=== PATIENT | female | born 1990 | race Caucasian/White ===

== ENCOUNTER → 2016-11-20 | Outpatient (CLI) | payer SELFPAY ==
[2016-11-20 10:15] LABS: BASO % 0.3 % (0.0-1.0); EOS # 0.1 K/mm3 (0.0-0.50); EOS % 1.6 % (0.0-3.0); LARGE UNSTAINED CELL # 0.2 K/mm3 (0.0-0.4); LARGE UNSTAINED CELL % 2.6 % (0.0-4.0); LYMPH # 1.7 K/mm3 (1.5-6.5); LYMPH % 27.5 % (24.0-44.0); MEAN CORPUSCULAR HEMOGLOBIN 27.9 pg (27.0-33.0); MEAN CORPUSCULAR HGB CONC 32.3 g/dl (32.0-36.5); MEAN CORPUSCULAR VOLUME 86.4 fl (80.0-96.0); MONO # 0.4 K/mm3 (0.0-0.8); MONO % 5.6 % (0.0-5.0); NEUTROPHILS # 3.9 K/mm3 (1.8-7.7); NEUTROPHILS % 62.4 % (36.0-66.0); PLATELET COUNT, AUTOMATED 324 k/mm3 (150-450); RED CELL DISTRIBUTION WIDTH 13.9 % (11.5-14.5); WHITE BLOOD COUNT 6.3 K/mm3 (4.0-10.0)
[2016-11-20 10:45] LABS: VITAMIN B12 LEVEL 277 PG/ML (247-911)
[2016-11-20 10:47] LABS: ALBUMIN 3.5 GM/DL (3.2-5.2); ALBUMIN/GLOBULIN RATIO 0.88 (1.00-1.93); ALKALINE PHOSPHATASE 62 U/L (45-117); ALT/SGPT 20 U/L (12-78); ANION GAP 11 MEQ/L (8-16); AST/SGOT 14 U/L (15-37); BILIRUBIN,TOTAL 0.3 MG/DL (0.2-1.0); BLOOD UREA NITROGEN 14 MG/DL (7-18); CALCIUM LEVEL 8.7 MG/DL (8.5-10.1); CARBON DIOXIDE LEVEL 25 MEQ/L (21-32); CHLORIDE LEVEL 106 MEQ/L (98-107); CREATININE FOR GFR 0.64 MG/DL (0.55-1.02); FREE T4 0.85 NG/DL (0.76-1.46); GLOMERULAR FILTRATION RATE > 60.0 (>60); GLUCOSE, FASTING 86 MG/DL (70-105); POTASSIUM SERUM 4.7 MEQ/L (3.5-5.1); SODIUM LEVEL 142 MEQ/L (136-145); TOTAL PROTEIN 7.5 GM/DL (6.4-8.2)
== END ==
LOC: M LAB 09:22
PROVIDERS: ATTEND Nurse Practitioner Family
DX: D64.9 Anemia, unspecified (principal); R53.83 Other fatigue

== ENCOUNTER → 2017-03-16 | Outpatient (REF) | payer MEDICAID | LOC: M SFHCLERA 12:23 | PROVIDERS: ATTEND Nurse Practitioner Family | DX: J06.9 Acute upper respiratory infection, unspecified (principal) ==

== ENCOUNTER 2017-04-27 17:25 | Inpatient (IN) | payer MEDICAID, OTHER ==
[~2017-04-27] VITALS: Ht 175.3 cm; Wt 122.9 kg
[2017-04-27] MEDS ORDERED: [UNRECOGNIZED DRUG - CODE] PO (17:49)
[2017-04-27] MEDS ORDERED: FERR325T3 PO (17:49)
[2017-04-27] MEDS ORDERED: IBUP800T23 PO (17:49)
[2017-04-27] MEDS ORDERED: FLUO10TA30 PO (17:49)
[2017-04-27] MEDS ORDERED: COLA100C3 PO (17:49)
[2017-04-27] MEDS ORDERED: SUBO2MIS SL (17:49)
[2017-04-27] MEDS ORDERED: BUPR150T3 PO (17:49)
[2017-04-27] MEDS ORDERED: VITA500T53 PO (17:49)
[2017-04-27 18:53] LABS: CONTROL LINE UCG INT CTR LINE PRESENT; MEAN CORPUSCULAR HEMOGLOBIN 29.7 pg (27.0-33.0); MEAN CORPUSCULAR VOLUME 87.4 fl (80.0-96.0); RED CELL DISTRIBUTION WIDTH 12.5 % (11.5-14.5); WHITE BLOOD COUNT 6.6 K/mm3 (4.0-10.0)
[2017-04-27 19:03] LABS: METHADONE URINE NEGATIVE (NEGATIVE)
[2017-04-27 19:14] LABS: ALBUMIN 3.5 GM/DL (3.2-5.2); ALKALINE PHOSPHATASE 57 U/L (45-117); ALT/SGPT 15 U/L (12-78); ANION GAP 5 MEQ/L (8-16); AST/SGOT 13 U/L (15-37); BILIRUBIN,DIRECT < 0.1 MG/DL (0.0-0.2); BILIRUBIN,TOTAL 0.2 MG/DL (0.2-1.0); BLOOD UREA NITROGEN 14 MG/DL (7-18); CALCIUM LEVEL 9.2 MG/DL (8.5-10.1); CARBON DIOXIDE LEVEL 29 MEQ/L (21-32); CHLORIDE LEVEL 102 MEQ/L (98-107); CREATININE FOR GFR 0.65 MG/DL (0.55-1.02); GLOMERULAR FILTRATION RATE > 60.0 (>60); GLUCOSE, FASTING 82 MG/DL (70-105); POTASSIUM SERUM 4.4 MEQ/L (3.5-5.1); SODIUM LEVEL 136 MEQ/L (136-145)
[2017-04-27] MEDS ORDERED: PATIENT COMMENT (20:48)
[2017-04-27 22:00] VITALS: BP 144/85
[2017-04-27] MEDS ORDERED: MAALOX 30 ML SUSP *UDC PO PRN (23:00)
[2017-04-27] MEDS ORDERED: ACETAMINOPHEN TAB 650MG DOSE (2X325MG) PO PRN (23:00)
[2017-04-27] MEDS ORDERED: MOM 30ML SUSPENSION UDC PO PRN (23:00)
[2017-04-28 06:36] VITALS: BP 129/60
[2017-04-28] MEDS: FERROUS SULFATE 325MG TAB PO SCH (08:05)
[2017-04-28] MEDS: DOCUSATE SODIUM 100 MG CAP PO SCH ×2 (08:05→21:50)
[2017-04-28] MEDS: buPROPion **XL** TABLET 150MG (WELLBUTRIN XL) PO SCH (08:05)
[2017-04-28] MEDS: NICOTINE 21MG/24HR 1 EA TRANSDERMAL TD SCH (08:05)
[2017-04-28] MEDS: CYANOCOBALAMIN 500 MCG TAB PO SCH (08:05)
[2017-04-28] MEDS ORDERED: BUPRENORPHINE/NALOXONE 2-0.5MG SUBLINGUAL TABLET(SUBOXONE) SL SCH (09:00)
[2017-04-28] MEDS ORDERED: FLUoxetine 10 MG CAP PO SCH (09:00)
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
[2017-04-28] MEDS ORDERED: BUPRENORPHINE/NALOXONE 2-0.5MG SUBLINGUAL TABLET(SUBOXONE) SL ONE (10:30)
--- NOTE | 2017-04-28 10:40 | HPEPDOC ---
Medical History and Physical Date of Admission Apr 27, 2017 at 20:08 History and Physical PCP: Eugenie Rodriguez NP ATTENDING: Dr. Curly Waldron HPI: 26 yo F admitted to [facility] for unspecified depressive disorder, being medically examined today. No acute medical complaints today. Denies any fevers, chills, weakness, fatigue, MUNOZ, CP, SOB, cough, palpitations, abdominal pain, N/V /D or changes in bowel or bladder habits. PMHx: Depression Anxiety Substance use History of anemia PSHX: 2 SOCHX: Resides in: [facility] women's home Marital Status: Single Kids: 2 Employment: Unemployed Tobacco use: Denies ETOH: Denies Illicit Drugs: Last used 6 months ago. History of heroin and methamphetamine. IV Drug Use: Heroin and methamphetamine Tattoos done unprofessionally: 1 FAMHX: Mother: Alive, depression Father: Alive, well Siblings: One brother Alive, substance use Children: Alive, well Unexpected deaths due to medical reasons: None. ROS: As noted in HPI, otherwise 11pt ROS of systems reviewed and remarkable only for LMP 04/27/17 PE: GEN: 26 yo F, appears stated age. Well-nourished, well developed. No acute distress. Alert and oriented x 3. Pleasant, interactive. HEENT: Normocephalic, atraumatic. Pupils are equal, round, and reactive to light. Extraocular movements are intact. No nystagmus appreciated. Sclera are nonicteric. Conjunctiva without injection. Nose midline. Nasal turbinates without bogginess. EACs both patent BL. TMs both visualized and montez with good cone of light, no bulging or erythema. No facial asymmetry. Moist mucous membranes. Dentition fair. Aphthous ulcers are noted buccal mucosal lower lip. Pharynx pink and moist, no cobblestoning. Neck supple, trachea midline. No lymphadenopathy or thyromegaly appreciated. CHEST: Regular rate and rhythm, +S1, +S2 LUNGS: Clear to auscultation bilaterally. No wheezes, rales, or rhonchi. Breathing appears symmetric and easy. Patient is speaking in full sentences. No accessory muscle use. ABD: Round, soft, non-tender, non-distended. +Bowel sounds throughout. No rebound or guarding. No costovertebral angle tenderness. EXT: Pulses 2+ bilaterally dorsalis pedis and radial. No lower extremity edema appreciated. SKIN: [place], dry, warm. Capillary refill <2sec. No rashes. NEURO: Alert and oriented x 3. Cranial nerves III-XII are intact. No focal deficits appreciated. EKG: pending A&P: 26 yo F admitted to [facility] for unspecified depressive disorder 1. Psych. Plan per Psychiatry. Obtain baseline EKG to assure the safety of psychiatric medications as they can prolong the QT interval. 2. History of anemia. Continue vitamin B12 supplement and ferrous sulfate supplement. Hemoglobin noted to be 12.2. 3. History of IVDU and tattoo done unprofessionally. Patient declines screening for HIV and hepatitis at this time stating she was screened 10/30 with negative results. 4. Follow up with PCP on discharge. 5. History of Substance use. Per psychiatry. Patient remains on Suboxone, obtains as outpatient as per [facility]. 6. Continue with OCP. 7. Aphthous ulcers. Apply Anbesol 3 times a day as needed. Chlorhexidine mouthwash 3 times a day. 8. Paulette DEL REAL present throughout exam. Vital Signs Vital Signs Date Time Temp Pulse Resp B/P (MAP) Pulse Ox O2 Delivery O2 Flow Rate FiO2 04/28/17 06:36 97.6 75 18 129/60 (83) Room Air 04/27/17 21:09 96 Laboratory Data Labs 24H Laboratory Tests 2 04/27/17 18:31: Urine Test NEGATIVE, Anion Gap 5L, Glomerular Filtration Rate > 60.0, Calcium Level 9.2, Aspartate Amino Transf (AST/SGOT) 13L, Alanine Aminotransferase (ALT/SGPT) 15, Alkaline Phosphatase 57, Total Bilirubin 0.2, Direct Bilirubin < 0.1, Total Protein 7.0, Albumin 3.5, Albumin/Globulin Ratio 1.00, Thyroid Stimulating Hormone (TSH) 2.420, Salicylates Level < 1.7L, Urine Amphetamines Screen NEGATIVE, Urine Benzodiazepines Screen NEGATIVE, Urine Opiates Screen NEGATIVE, Urine Methadone Screen NEGATIVE, Acetaminophen Level < 2.0L, Urine Barbiturates Screen NEGATIVE, Urine Phencyclidine Screen NEGATIVE, Urine Cocaine Metabolite Screen NEGATIVE, Urine Cannabinoids Screen NEGATIVE, Ethyl Alcohol Level 0.003 CBC/BMP Laboratory Tests 04/27/17 18:31 Red Blood Count 4.09, Mean Corpuscular Volume 87.4, Mean Corpuscular Hemoglobin 29.7, Mean Corpuscular Hemoglobin Concent 34.0, Red Cell Distribution Width 12.5 Home Medications Scheduled (Fluoxetine HCl) 10 Mg Tab, 10 MG PO DAILY (Marlissa 0.15-30 mg-Mcg) 1 Tab Tab, 1 TAB PO DAILY Buprenorphine/Naloxone (Suboxone 2-0.5 mg) 1 Mis Mis, 1 MIS SL DAILY Bupropion Hcl (Bupropion HCl Xl) 150 Mg Tab, 150 MG PO DAILY Cyanocobalamin (Vitamin B12) 500 Mcg Tab, 500 MCG PO DAILY Docusate Sodium (Colace) 100 Mg Cap, 100 MG PO BID Ferrous Sulfate (Ferrous Sulfate) 325 Mg Tab, 325 MG PO DAILY Scheduled PRN Ibuprofen (Ibuprofen) 800 Mg Tab, 800 MG PO TID PRN for PAIN Miscellaneous Medications [Patient Comment] UNABLE TO VERIFY PATIENT MEDICATIONS WITH PHARMACY, MED LIST BASED ON PATIENT STATEMENT, WILL CALL 04/28/17 AM. Allergies Coded Allergies: No Known Allergies (Unverified , 04/27/17) Jaja Avalos Apr 28, 2017 10:40
[2017-04-28] MEDS ORDERED: FLUO1TAB3 PO (11:16)
[2017-04-28 12:35] VITALS: BP 143/79
[2017-04-28] MEDS: ANBESOL GEL 10% MT SCH ×3 (14:27→21:51)
[2017-04-28] MEDS: CHLORHEXIDINE GLUCONATE 0.12 % 15ML UDC (PERIDEX ORAL RINSE) SSP SCH ×3 (14:27→21:51)
[2017-04-28 18:27] VITALS: BP 136/72
[2017-04-28 21:00] VITALS: BP 128/76
--- NOTE | 2017-04-28 22:36 | ECGEPIP ---
Stationary ECG Study [facility] Test Date: 2017-04-28 Pat Name: TAMMY MAHAJAN Department: Room: [place] [address] Gender: F [place]: : 1990 Requested By: Jaja Avalos Order Number: [id number] Reading MD: Tunde Mahmood Measurements Intervals [place] Rate: 60 P: 50 UT: 153 QRS: 59 QRSD: 109 T: 51 QT: 420 QTc: 422 Interpretive Statements Normal sinus rhythm Normal EKG Comparison tracing not available Electronically Signed On 04-28-2017 22:36:36 EDT by Tunde Mahmood
[2017-04-28] MEDS: traZODone 50 MG TAB PO PRN (23:03)
[2017-04-29 06:00] VITALS: BP 113/57
[2017-04-29] MEDS: ANBESOL GEL 10% MT SCH ×3 (08:11→21:35)
[2017-04-29] MEDS: CHLORHEXIDINE GLUCONATE 0.12 % 15ML UDC (PERIDEX ORAL RINSE) SSP SCH ×3 (08:11→21:34)
[2017-04-29] MEDS: buPROPion **XL** TABLET 150MG (WELLBUTRIN XL) PO SCH (08:12)
[2017-04-29] MEDS: NICOTINE 21MG/24HR 1 EA TRANSDERMAL TD SCH (08:12)
[2017-04-29] MEDS: DOCUSATE SODIUM 100 MG CAP PO SCH ×2 (08:12→21:34)
[2017-04-29] MEDS: FERROUS SULFATE 325MG TAB PO SCH (08:12)
[2017-04-29] MEDS: CYANOCOBALAMIN 500 MCG TAB PO SCH (08:12)
[2017-04-29] MEDS: FLUoxetine 10 MG CAP PO SCH (08:12)
[2017-04-29] MEDS ORDERED: ENTER DRUG NAME HERE (PATIENT'S OWN MED) PO SCH (09:00)
[2017-04-29] MEDS: BUPRENORPHINE/NALOXONE 2-0.5MG SUBLINGUAL TABLET(SUBOXONE) SL SCH (11:45)
--- NOTE | 2017-04-29 15:55 | MHIPNPDOC ---
[facility] Progress Note Progress Note DATE OF SERVICE: 04/29/17 HISTORY: Patient is a 26-year-old female with 1 prior psychiatric admission post OD heroin, with multiple admissions for rehabilitation for substance abuse. Patient indicates she has been experiencing increased stress related to recent request to be "promoted" in substance abuse residential program and was denied, adds she was experiencing thoughts of wanting to kill herself with plan to hang self or drink bleach. Patient has history of one prior suicide attempt. Heating Unit Installer met with patient today to assess treatment progress on inpatient unit. Patient was irritable at times of interaction due to pharmacy not receiving Suboxone, however, was able to maintain composure and engage with poem writer for assessment purposes. Patient reported current anxiety level of 5/10, depression 2/10, denied suicidal and homicidal ideation, denied auditory or visual hallucinations, denied urge to engage in self-injurious behavior. Patient reiterated today that her Prozac dose was increased approximately 3-4 weeks ago , and Wellbutrin XL was added approximately one week ago. Patient reports some improvement to symptoms of anxiety and depression today, indicates improvement may be related to medications or being in hospital environment. Patient is aware she has hydroxyzine available to her for intermittent symptoms of anxiety if needed. Patient reports reduced symptoms of irritability, anger, mood lability, endorses symptoms of craving or withdrawal at time of interaction due to not having had a.m. dose of Suboxone. Patient indicates appetite remains elevated, states she is sleeping well, reports ongoing challenges with concentration and focus. Patient denies symptoms of physical pain and presents with no signs of acute distress at time of interaction. Patient states she is being prescribed the following medications by her outpatient provider: Prozac 30 mg po q day - states dose was increased approximately one month ago Wellbutrin XL 150 mg po q am - states medication was added one week ago to address weight concerns and challenges with concentration and focus. VITALS: See below NEW TEST RESULTS: No new results PAST MEDICAL/SURGICAL HISTORY: Patient reports history of anemia and 2, denies history of other chronic medical problems, further denies history of seizure or head injury. Patient is currently experiencing aphthous ulcers which are being treated by PA Labs on admission indicated low HCT, anion gap, and AST. UDS negative HCG negative 04/28/17 EKG Normal sinus rhythm Normal EKG Comparison tracing not available CURRENT MEDICATIONS: See below MENTAL STATUS EXAMINATION: General appearance: Patient is a 26 -year old female, who is mildly irritable but makes effort to be pleasant, is cooperative, is engageable, makes adequate eye contact, is disheveled, dressed in hospital clothing, ambulates with steady gait, appears stated age. Speech: Of normal rate, rhythm, volume, spontaneous, coherent. Thought processes: Linear, logical, goal-directed. Thought content: Logical, rational, no tangentiality or paranoia noted, no perseveration. Abstract reasoning and computation: Appear intact. Description of associations: Intact. Description of abnormal or psychotic thoughts: Patient denies suicidal or homicidal ideation, denies auditory or visual hallucinations, does not appear to be responding to internal stimuli, does not endorse bizarre paranoid ideation , and denies preoccupation with violence or obsession. Judgment: Limited. Insight: Limited. Orientation: A and O 3. Recent and remote memory: Appear intact. Attention span and concentration: Appear adequate. Fund of knowledge: Appears adequate. Mood: "I'm ok, just frustrated." Affect: Blunted, congruent with mood. DIAGNOSES: Unspecified mood disorder, polysubstance use disorder. Rule out MDD, rule out bipolar, rule out substance-induced mood disorder, rule out ICD, rule out attention and concentration disorder, rule out kleptomania, rule out PTSD ASSESSMENT: Patient continues to adjust to unit, remains quiet and generally isolated to self, but is visible on unit and is participating in unit activities , is cooperative with staff and has presented with no behavior management challenges. Adjustments were recently made to patient's psychotropic medications by outpatient provider and patient indicates medications were previously effective and denies medication side effects. Patient reiterates today she will not take any medication which may cause weight gain, denies need for medication changes, dosing adjustment at time of interaction.. Patient is also on Suboxone maintenance and became noticeably irritable when medication was not brought over from the pharmacy this morning, however, was able to maintain composure until medication arrived on unit. Patient is aware she has PRN anxiolytic and sleep aid available to her if needed. Patient is requesting to continue current medication regimen at this time and denies medication side effects. Patient denies current suicidal or homicidal ideation and verbalizes awareness of how to access supportive services on the unit if needed. Will Lorena to monitor patient's response to medications and will evaluate need for medication/dosing adjustment, will also monitor for medication side effects. Will evaluate patient's safety, resolution of suicidal ideation, and discharge readiness. Patient states when prepared for discharge she knows she will return to [facility] residential program, is agreeable to resume outpatient psychotherapy and medication management through [facility] post discharge. MANAGEMENT PLAN: Continue Prozac 30 mg po q am, Wellbutrin XL 150 mg po q am, Suboxone 6 mg sL q day. Maintain safety precautions Patient to attend groups and participate in unit programming to develop coping strategies Engage patient in discharge planning process and arrange meeting with support system to ensure safe discharge planning when appropriate Patient to follow up with PCM upon discharge TIME SPENT: 35 minutes Vital Signs Vital Signs Date Time Temp Pulse Resp B/P (MAP) Pulse Ox O2 Delivery O2 Flow Rate FiO2 04/29/17 06:00 98.1 64 18 113/57 (75) 04/28/17 06:36 Room Air 04/27/17 21:09 96 Current Medications Current Medications Acetaminophen (Tylenol Tab) 650 mg Q6HP PRN PO HEADACHE or DISCOMFORT; Start at 23:00; Stop 05/27/17 at 22:59 Al Hydrox/Mg Hydrox/Simethicone (Mylanta) 30 ml Q4HP PRN PO HEARTBURN/ INDIGESTION; Start 04/27/17 at 23:00; Stop 05/27/17 at 22:59 Benzocaine (Anbesol Gel) 1 dose TID MT Last administered on 04/29/17 15:45; Start 04/28/17 at 09:00; Stop 05/28/17 at 08:59 Buprenorphine/ Naloxone (Suboxone 2/ 0.5mg) 1 tab DAILY SL Last administered on 04/28/17 08:05; Start 04/28/17 at 09:00; Stop 04/28/17 at 10:42; Status DC Buprenorphine/ Naloxone (Suboxone 2/ 0.5mg) 3 tab DAILY SL Last administered on 04/29/17 11:45; Start 04/29/17 at 09:00; Stop 05/06/17 at 08:59 Bupropion HCl (Wellbutrin Xl) 150 mg DAILY PO Last administered on 04/29/17 08 :12; Start 04/28/17 at 09:00; Stop 05/28/17 at 08:59 Chlorhexidine Gluconate (Peridex Oral Rinse) 15 ml TID SSP Last administered on 04/29/17 15:45; Start 04/28/17 at 09:00; Stop 05/28/17 at 08:59 Cyanocobalamin (Vitamin B12) 500 mcg DAILY PO Last administered on 04/29/17 08 :12; Start 04/28/17 at 09:00; Stop 05/28/17 at 08:59 Docusate Sodium (Colace) 100 mg BID PO Last administered on 04/29/17 08:12; Start 04/28/17 at 09:00; Stop 05/28/17 at 08:59 Ferrous Sulfate (Ferrous Sulfate) 325 mg DAILY PO Last administered on 08:12; Start 04/28/17 at 09:00; Stop 05/28/17 at 08:59 Fluoxetine HCl (PROzac) 10 mg DAILY PO Last administered on 04/28/17 08:05; Start 04/28/17 at 09:00; Stop 04/28/17 at 22:17; Status DC Fluoxetine HCl (PROzac) 30 mg DAILY PO Last administered on 04/29/17 08:12; Start 04/29/17 at 09:00; Stop 05/29/17 at 08:59 Home Med (Med Rec Complete!) ASDIRECTED XX ; Start 04/27/17 at 21:00; Stop at 21:00; Status DC Hydroxyzine HCl (Atarax) 50 mg Q6HP PRN PO ANXIETY; Start 04/28/17 at 22:15; Stop 05/28/17 at 22:14 Magnesium Hydroxide (Milk Of Magnesia) 30 ml DAILYPRN PRN PO CONSTIPATION; Start 04/27/17 at 23:00; Stop 05/27/17 at 22:59 Miscellaneous (Unresolved Patient Own Med Order) SEE LABEL COMMENTS UNRESOLVED XX ; Start 04/28/17 at 00:01; Stop 04/29/17 at 14:11; Status DC Nicotine (Nicoderm Cq 21mg) 1 patch DAILY TD Last administered on 04/29/17 08: 12; Start 04/28/17 at 09:00; Stop 05/28/17 at 08:59 Patient Own Medication (Patient'S Own Med) 1 ea DAILY PO ; Start 04/29/17 at 09: 00; Stop 04/29/17 at 14:11; Status DC Trazodone HCl (Desyrel) 50 mg QHSP PRN PO INSOMNIA Last administered on t 23:03; Start 04/27/17 at 23:00; Stop 05/27/17 at 22:59 Allergies Coded Allergies: No Known Allergies (Unverified , 04/27/17) Michelle Kruse Apr 29, 2017 15:55
[2017-04-29 18:00] VITALS: BP 115/58
[2017-04-29] MEDS: hydrOXYzine 50 MG TAB PO PRN (21:34)
[2017-04-29] MEDS: traZODone 50 MG TAB PO PRN (23:03)
[2017-04-30 06:00] VITALS: BP 94/50
[2017-04-30] MEDS: ANBESOL GEL 10% MT SCH ×3 (09:00→21:00)
[2017-04-30] MEDS: DOCUSATE SODIUM 100 MG CAP PO SCH ×2 (09:47→21:10)
[2017-04-30] MEDS: buPROPion **XL** TABLET 150MG (WELLBUTRIN XL) PO SCH (09:47)
[2017-04-30] MEDS: BUPRENORPHINE/NALOXONE 2-0.5MG SUBLINGUAL TABLET(SUBOXONE) SL SCH (09:47)
[2017-04-30] MEDS: NICOTINE 21MG/24HR 1 EA TRANSDERMAL TD SCH (09:47)
[2017-04-30] MEDS: FERROUS SULFATE 325MG TAB PO SCH (09:47)
[2017-04-30] MEDS: CYANOCOBALAMIN 500 MCG TAB PO SCH (09:48)
[2017-04-30] MEDS: FLUoxetine 10 MG CAP PO SCH (09:48)
[2017-04-30] MEDS: CHLORHEXIDINE GLUCONATE 0.12 % 15ML UDC (PERIDEX ORAL RINSE) SSP SCH ×3 (09:51→21:10)
--- NOTE | 2017-04-30 14:25 | MHIPNPDOC ---
[facility] Progress Note Progress Note DATE OF SERVICE: 04/30/17 HISTORY: Patient is a 26-year-old female with 1 prior psychiatric admission post OD heroin, with multiple admissions for rehabilitation for substance abuse. Patient indicates she has been experiencing increased stress related to recent request to be "promoted" in substance abuse residential program and was denied, adds she was experiencing thoughts of wanting to kill herself with plan to hang self or drink bleach. Patient has history of one prior suicide attempt. Professor Of Languages met with patient today to assess treatment progress on inpatient unit. Patient was less irritable at time of interaction today, reported current anxiety level 4/10, depression 4/10, denied suicidal and homicidal ideation, denied auditory or visual hallucinations, denied urge to engage in self- injurious behavior. Patient indicates she is feeling "a little better," states she notices no change in terms of Wellbutrin XL effectiveness which was added approximately one week ago to her existing medication regimen in effort to address concentration and focus challenges and Prozac medication side effect of weight gain. Patient reports some improvement to symptoms of anxiety and depression, and attributes improvement to being in the hospital environment. Patient has utilized hydroxyzine 1 to address intermittent increase in symptoms anxiety, reports medication worked with good effect. Patient further reports marginal reduction in symptoms of irritability, anger, denies mood lability, and today denies symptoms of craving or withdrawal. Patient indicates appetite remains elevated, energy level remains low, states she is sleeping well with trazodone, reports ongoing challenges with concentration and focus. Patient denies symptoms of physical pain and presents with no signs of acute distress at time of interaction. Patient states she was being prescribed the following medications by her outpatient provider: Prozac 30 mg po q day - states dose was increased approximately one month ago Wellbutrin XL 150 mg po q am - states medication was added one week ago to address weight concerns and challenges with concentration and focus. Addendum: When commercial real estate underwriter spoke with [facility] nurse, Gloria, on 04/30/17, who indicated patient had been taking the following medications prescribed by [facility]: BuSpar 7.5 mg po BID until 04/21/17, discontinued due to ineffectiveness Prozac 30 mg po q am, unknown when increased from 20 mg, patient states approximately 1 month ago Wellbutrin XL 150 mg po q am started 04/21/17 VITALS: See below NEW TEST RESULTS: No new results PAST MEDICAL/SURGICAL HISTORY: Patient reports history of anemia and 2, denies history of other chronic medical problems, further denies history of seizure or head injury. Patient is currently experiencing aphthous ulcers which are being treated by PA Labs on admission indicated low HCT, anion gap, and AST. UDS negative HCG negative 04/28/17 EKG Normal sinus rhythm Normal EKG Comparison tracing not available CURRENT MEDICATIONS: See below MENTAL STATUS EXAMINATION: General appearance: Patient is a 26 -year old female, who is irritable today, generally pleasant and cooperative, engageable, makes adequate eye contact, is less disheveled, dressed in hospital clothing, ambulates with steady gait, appears stated age. Speech: Of normal rate, rhythm, volume, spontaneous, coherent. Thought processes: Linear, logical, goal-directed. Thought content: Logical, rational, no tangentiality or paranoia noted, no perseveration. Abstract reasoning and computation: Appear intact. Description of associations: Intact. Description of abnormal or psychotic thoughts: Patient denies suicidal or homicidal ideation, denies auditory or visual hallucinations, does not appear to be responding to internal stimuli, does not endorse bizarre paranoid ideation , and denies preoccupation with violence or obsession. Judgment: Limited some improvement noted during treatment Insight: Limited. Orientation: A and O 3. Recent and remote memory: Appear intact. Attention span and concentration: Appear adequate. Fund of knowledge: Appears adequate. Mood: "Maybe a little better today." Patient continues to appear depressed and anxious, no mood lability noted Affect: Remains blunted, brightens 1, congruent with mood. DIAGNOSES: Unspecified mood disorder, polysubstance use disorder. Rule out MDD, rule out bipolar, rule out substance-induced mood disorder, rule out ICD, rule out attention and concentration disorder, rule out kleptomania, rule out PTSD ASSESSMENT: Patient continues to adjust to unit, remains quiet and generally isolated to self, but is visible on unit and is participating in unit activities , is cooperative with staff and has presented with no behavior management challenges. Confirmation has been received from outpatient provider regarding recent changes to patient's medication regimen, patient indicates today she would like Wellbutrin XL dose increase in effort to further reduce symptoms of anxiety and depression, increase energy level, improve concentration and focus, and reduce appetite. Patient verbalizes awareness that Wellbutrin may or may not be effective in impacting the aforementioned symptoms. corporate safety coordinator has confirmed with [facility] that patient is on Suboxone maintenance and taper is not being recommended by [facility] at this time. Patient has utilized hydroxyzine PRN to address symptoms of anxiety and has also been utilizing trazodone for sleep with good effect reported. Patient was educated on potential risks of psychotropic medications to unborn child should she become while taking medications and was strongly encouraged to utilize control while taking psychotropic medications, patient verbalizes understanding. Patient is requesting to continue current medication regimen at this time and denies medication side effects. Patient denies current suicidal or homicidal ideation and verbalizes awareness of how to access supportive services on the unit if needed. Will continue to monitor patient's response to medications and will also monitor for medication side effects. Will evaluate patient's safety, resolution of suicidal ideation, and discharge readiness. Patient states when prepared for discharge she will return to [facility] residential program, is agreeable to resume outpatient psychotherapy and medication management through [facility] post discharge. MANAGEMENT PLAN: Increase Wellbutrin XL to 300 mg po q am. Continue Prozac 30 mg po q am with plan to taper on Wednesday or sooner if tolerated by patient. Continue Suboxone 6 mg sL q day, hydroxyzine 50 mg po every 6 PRN for anxiety, and trazodone 50 mg po hs PRN insomnia. Maintain safety precautions Patient to attend groups and participate in unit programming to develop coping strategies Engage patient in discharge planning process and arrange meeting with support system to ensure safe discharge planning when appropriate Patient to follow up with PCM upon discharge TIME SPENT: 35 minutes Vital Signs Vital Signs Date Time Temp Pulse Resp B/P (MAP) Pulse Ox O2 Delivery O2 Flow Rate FiO2 04/30/17 09:59 Room Air 04/30/17 06:00 99.0 71 18 94/50 (65) 04/27/17 21:09 96 Current Medications Current Medications Acetaminophen (Tylenol Tab) 650 mg Q6HP PRN PO HEADACHE or DISCOMFORT; Start at 23:00; Stop 05/27/17 at 22:59 Al Hydrox/Mg Hydrox/Simethicone (Mylanta) 30 ml Q4HP PRN PO HEARTBURN/ INDIGESTION; Start 04/27/17 at 23:00; Stop 05/27/17 at 22:59 Benzocaine (Anbesol Gel) 1 dose TID MT Last administered on 04/29/17 21:35; Start 04/28/17 at 09:00; Stop 05/28/17 at 08:59 Buprenorphine/ Naloxone (Suboxone 2/ 0.5mg) 1 tab DAILY SL Last administered on 04/28/17 08:05; Start 04/28/17 at 09:00; Stop 04/28/17 at 10:42; Status DC Buprenorphine/ Naloxone (Suboxone 2/ 0.5mg) 3 tab DAILY SL Last administered on 04/30/17 09:47; Start 04/29/17 at 09:00; Stop 05/06/17 at 08:59 Bupropion HCl (Wellbutrin Xl) 150 mg DAILY PO Last administered on 04/30/17 09 :47; Start 04/28/17 at 09:00; Stop 05/28/17 at 08:59 Chlorhexidine Gluconate (Peridex Oral Rinse) 15 ml TID SSP Last administered on 04/30/17 09:51; Start 04/28/17 at 09:00; Stop 05/28/17 at 08:59 Cyanocobalamin (Vitamin B12) 500 mcg DAILY PO Last administered on 04/30/17 09 :48; Start 04/28/17 at 09:00; Stop 05/28/17 at 08:59 Docusate Sodium (Colace) 100 mg BID PO Last administered on 04/30/17 09:47; Start 04/28/17 at 09:00; Stop 05/28/17 at 08:59 Ferrous Sulfate (Ferrous Sulfate) 325 mg DAILY PO Last administered on 09:47; Start 04/28/17 at 09:00; Stop 05/28/17 at 08:59 Fluoxetine HCl (PROzac) 10 mg DAILY PO Last administered on 04/28/17 08:05; Start 04/28/17 at 09:00; Stop 04/28/17 at 22:17; Status DC Fluoxetine HCl (PROzac) 30 mg DAILY PO Last administered on 04/30/17 09:48; Start 04/29/17 at 09:00; Stop 05/29/17 at 08:59 Home Med (Med Rec Complete!) ASDIRECTED XX ; Start 04/27/17 at 21:00; Stop at 21:00; Status DC Hydroxyzine HCl (Atarax) 50 mg Q6HP PRN PO ANXIETY Last administered on 21:34; Start 04/28/17 at 22:15; Stop 05/28/17 at 22:14 Magnesium Hydroxide (Milk Of Magnesia) 30 ml DAILYPRN PRN PO CONSTIPATION; Start 04/27/17 at 23:00; Stop 05/27/17 at 22:59 Miscellaneous (Unresolved Patient Own Med Order) SEE LABEL COMMENTS UNRESOLVED XX ; Start 04/28/17 at 00:01; Stop 04/29/17 at 14:11; Status DC Nicotine (Nicoderm Cq 21mg) 1 patch DAILY TD Last administered on 04/30/17 09: 47; Start 04/28/17 at 09:00; Stop 05/28/17 at 08:59 Patient Own Medication (Patient'S Own Med) 1 ea DAILY PO ; Start 04/29/17 at 09: 00; Stop 04/29/17 at 14:11; Status DC Trazodone HCl (Desyrel) 50 mg QHSP PRN PO INSOMNIA Last administered on 23:03; Start 04/27/17 at 23:00; Stop 05/27/17 at 22:59 Allergies Coded Allergies: No Known Allergies (Unverified , 04/27/17) Michelle Kruse Apr 30, 2017 14:25
[2017-04-30 18:00] VITALS: BP 119/58
[2017-04-30] MEDS: hydrOXYzine 50 MG TAB PO PRN (21:10)
[2017-04-30] MEDS: traZODone 50 MG TAB PO PRN (22:26)
[2017-05-01 06:45] VITALS: BP 116/57
[2017-05-01] MEDS: ANBESOL GEL 10% MT SCH ×3 (08:41→21:00)
[2017-05-01] MEDS: CHLORHEXIDINE GLUCONATE 0.12 % 15ML UDC (PERIDEX ORAL RINSE) SSP SCH ×3 (08:45→21:00)
[2017-05-01] MEDS: FLUoxetine 10 MG CAP PO SCH (08:45)
[2017-05-01] MEDS: DOCUSATE SODIUM 100 MG CAP PO SCH ×2 (08:45→21:28)
[2017-05-01] MEDS: BUPRENORPHINE/NALOXONE 2-0.5MG SUBLINGUAL TABLET(SUBOXONE) SL SCH (08:45)
[2017-05-01] MEDS: CYANOCOBALAMIN 500 MCG TAB PO SCH (08:46)
[2017-05-01] MEDS: FERROUS SULFATE 325MG TAB PO SCH (08:46)
[2017-05-01] MEDS: NICOTINE 21MG/24HR 1 EA TRANSDERMAL TD SCH (08:46)
[2017-05-01] MEDS: buPROPion **XL** TABLET 150MG (WELLBUTRIN XL) PO SCH (08:47)
[2017-05-01 18:19] VITALS: BP 118/58
[2017-05-01] MEDS: hydrOXYzine 50 MG TAB PO PRN (21:28)
[2017-05-01] MEDS: traZODone 50 MG TAB PO PRN (23:32)
[2017-05-02 06:32] VITALS: BP 129/59
--- NOTE | 2017-05-02 07:48 | IPN ---
DATE OF SERVICE: 05/01/2017 SUBJECTIVE: "I am feeling a little better." OBJECTIVE: Patient is improving slowly. Reports less feelings of depression and denies side effect from the medication. Patient does not have psychotic symptoms. No auditory or visual hallucinations or delusions. MENTAL STATUS EXAMINATION: Patient is dressed in [facility]. Patient has fair eye contact. Speech is slow and monotone. Mood is depressed and anxious but improved. Affect is restricted. No delusions or hallucinations. Memory, attention and concentration are fair. Patient is able to contract for safety during her hospitalization. Insight and judgment is limited. ASSESSMENT: 1. Depression. 2. Suicidal ideation. 3. Substance abuse. PLAN: 1. Continue with bupropion 300 mg by mouth every morning. 2. Continue with Prozac 20 mg by mouth every morning. 3. Continue with trazodone 50 mg as needed for insomnia. 4. Continue with Suboxone three tablets daily. 5. Continue with hydroxyzine 50 mg by mouth nightly as needed for anxiety. 6. Continue medication management, individual and group therapy.
[2017-05-02] MEDS: CHLORHEXIDINE GLUCONATE 0.12 % 15ML UDC (PERIDEX ORAL RINSE) SSP SCH ×3 (09:00→21:40)
[2017-05-02] MEDS: ANBESOL GEL 10% MT SCH ×3 (09:00→21:00)
[2017-05-02] MEDS: FERROUS SULFATE 325MG TAB PO SCH (09:42)
[2017-05-02] MEDS: CYANOCOBALAMIN 500 MCG TAB PO SCH (09:42)
[2017-05-02] MEDS: BUPRENORPHINE/NALOXONE 2-0.5MG SUBLINGUAL TABLET(SUBOXONE) SL SCH (09:42)
[2017-05-02] MEDS: FLUoxetine 10 MG CAP PO SCH (09:42)
[2017-05-02] MEDS: NICOTINE 21MG/24HR 1 EA TRANSDERMAL TD SCH (09:42)
[2017-05-02] MEDS: buPROPion **XL** TABLET 150MG (WELLBUTRIN XL) PO SCH (09:42)
[2017-05-02] MEDS: DOCUSATE SODIUM 100 MG CAP PO SCH ×2 (09:42→21:40)
[2017-05-02 18:00] VITALS: BP 118/58
[2017-05-03 07:16] VITALS: BP 136/60
[2017-05-03] MEDS: buPROPion **XL** TABLET 150MG (WELLBUTRIN XL) PO SCH (08:49)
[2017-05-03] MEDS: CYANOCOBALAMIN 500 MCG TAB PO SCH (08:49)
[2017-05-03] MEDS: FERROUS SULFATE 325MG TAB PO SCH (08:49)
[2017-05-03] MEDS: FLUoxetine 10 MG CAP PO SCH (08:49)
[2017-05-03] MEDS: DOCUSATE SODIUM 100 MG CAP PO SCH ×2 (08:49→21:13)
[2017-05-03] MEDS: BUPRENORPHINE/NALOXONE 2-0.5MG SUBLINGUAL TABLET(SUBOXONE) SL SCH (08:50)
[2017-05-03] MEDS: ANBESOL GEL 10% MT SCH ×3 (08:50→21:00)
[2017-05-03] MEDS: CHLORHEXIDINE GLUCONATE 0.12 % 15ML UDC (PERIDEX ORAL RINSE) SSP SCH ×3 (08:50→21:00)
[2017-05-03] MEDS: NICOTINE 21MG/24HR 1 EA TRANSDERMAL TD SCH (08:51)
--- NOTE | 2017-05-03 16:43 | MHIPNPDOC ---
[facility] Progress Note Progress Note DATE OF SERVICE: 05/03/17 INTERVAL HISTORY: Medication Side effects: The patient reports no side effects from her Wellbutrin , Prozac or Suboxone at this time Behavior/events: The patient has been noted the previous evening to have a late night meeting with a male patient which she observed letting him leave her room , after questioning the previous evening the 2 refused to discuss what they have been doing in her room. No acute episodes of agitation Group Attendance: The patient has been attending groups fairly frequently, reporting that she is getting some benefit from them Psychiatric Symptoms: Reports that she feels her side effects are getting "somewhat better" but describes still impulsivity, irritability, mood fluctuations, internalize feelings of sadness and difficulty relating to others in a healthy way. She described that she did not have any intrusive thoughts or nightmares there were specific to trauma. She describes their symptoms primarily fit the 9 out of 9 symptoms for borderline personality disorder in addition to her originally presenting depressive symptoms. She feels as though the medication is working somewhat and that she wants more therapy when she leaves. VITAL SIGNS: See below. NEW TEST RESULTS: See below CURRENT MEDICATIONS: See below. MENTAL STATUS EXAMINATION: General: Well dressed with good hygiene Speech: Spontaneous and fluid Thought processes: Linear and logical Thought content: Future orientated, interested in her diagnosis Abstract reasoning, and computation: Intact Description of associations: Intact Description of abnormal or psychotic thoughts:Denies any suicidal or homicidal ideation. Denies any auditory or visual hallucinations. Does not appear to be responding to internal stimuli. Does not appear to be endorsing any bizarre or paranoid ideation. Judgment: Limited Insight: Limited Orientation: Alert and orientated 3 Recent and remote memory: Intact Attention span and concentration: Intact Fund of knowledge: Adequate Mood: "Fine" Affect: Dysthymic with constricted range DIAGNOSES: 1. Unspecified depressive disorder Rule out substance-induced. 2. Borderline personality disorder, provisional. 3. Polysubstance use, severe, on maintenance therapy. ASSESSMENT: 26-year-old woman whom upon further evaluation does not meet criteria for PTSD but does meet criteria for borderline personality disorder in addition to her original presenting depressive complaints. Does not entirely clear if the patient's depressive symptoms are primarily substance-induced redirects extensive substance abuse history. She does be 9 out of 9 borderline personality criteria and is likely suffering from this condition. MANAGEMENT PLAN: Medications: Continue Prozac, Wellbutrin and Suboxone as below Psychotherapy: Encourage group therapy Social: amusement park worker is [facility]: Patient was reportedly advised by nursing staff that is unacceptable to have other patients in her room Disposition: The patient will need of further inpatient stay to address further disposition planning and medication titration. TIME SPENT: 20 minutes. Vital Signs Vital Signs Date Time Temp Pulse Resp B/P (MAP) Pulse Ox O2 Delivery O2 Flow Rate FiO2 05/03/17 07:16 98.7 69 19 136/60 (85) 04/30/17 09:59 Room Air 04/27/17 21:09 96 Current Medications Current Medications Acetaminophen (Tylenol Tab) 650 mg Q6HP PRN PO HEADACHE or DISCOMFORT; Start at 23:00; Stop 05/27/17 at 22:59 Al Hydrox/Mg Hydrox/Simethicone (Mylanta) 30 ml Q4HP PRN PO HEARTBURN/ INDIGESTION; Start 04/27/17 at 23:00; Stop 05/27/17 at 22:59 Benzocaine (Anbesol Gel) 1 dose TID MT Last administered on 04/30/17 16:33; Start 04/28/17 at 09:00; Stop 05/28/17 at 08:59 Buprenorphine/ Naloxone (Suboxone 2/ 0.5mg) 1 tab DAILY SL Last administered on 04/28/17 08:05; Start 04/28/17 at 09:00; Stop 04/28/17 at 10:42; Status DC Buprenorphine/ Naloxone (Suboxone 2/ 0.5mg) 3 tab DAILY SL Last administered on 05/03/17 08:50; Start 04/29/17 at 09:00; Stop 05/06/17 at 08:59 Bupropion HCl (Wellbutrin Xl) 150 mg DAILY PO Last administered on 04/30/17 09 :47; Start 04/28/17 at 09:00; Stop 04/30/17 at 15:15; Status DC Bupropion HCl (Wellbutrin Xl) 300 mg DAILY PO Last administered on 05/03/17 08 :49; Start 05/01/17 at 09:00; Stop 05/31/17 at 08:59 Chlorhexidine Gluconate (Peridex Oral Rinse) 15 ml TID SSP Last administered on 05/02/17 21:40; Start 04/28/17 at 09:00; Stop 05/28/17 at 08:59 Cyanocobalamin (Vitamin B12) 500 mcg DAILY PO Last administered on 05/03/17 08 :49; Start 04/28/17 at 09:00; Stop 05/28/17 at 08:59 Docusate Sodium (Colace) 100 mg BID PO Last administered on 05/03/17 08:49; Start 04/28/17 at 09:00; Stop 05/28/17 at 08:59 Ferrous Sulfate (Ferrous Sulfate) 325 mg DAILY PO Last administered on 08:49; Start 04/28/17 at 09:00; Stop 05/28/17 at 08:59 Fluoxetine HCl (PROzac) 10 mg DAILY PO Last administered on 04/28/17 08:05; Start 04/28/17 at 09:00; Stop 04/28/17 at 22:17; Status DC Fluoxetine HCl (PROzac) 30 mg DAILY PO Last administered on 05/03/17 08:49; Start 04/29/17 at 09:00; Stop 05/29/17 at 08:59 Home Med (Med Rec Complete!) ASDIRECTED XX ; Start 04/27/17 at 21:00; Stop at 21:00; Status DC Hydroxyzine HCl (Atarax) 50 mg Q6HP PRN PO ANXIETY Last administered on 21:28; Start 04/28/17 at 22:15; Stop 05/28/17 at 22:14 Magnesium Hydroxide (Milk Of Magnesia) 30 ml DAILYPRN PRN PO CONSTIPATION; Start 04/27/17 at 23:00; Stop 05/27/17 at 22:59 Miscellaneous (Unresolved Patient Own Med Order) SEE LABEL COMMENTS UNRESOLVED XX ; Start 04/28/17 at 00:01; Stop 04/29/17 at 14:11; Status DC Nicotine (Nicoderm Cq 21mg) 1 patch DAILY TD Last administered on 05/03/17 08: 51; Start 04/28/17 at 09:00; Stop 05/28/17 at 08:59 Patient Own Medication (Patient'S Own Med) 1 ea DAILY PO ; Start 04/29/17 at 09: 00; Stop 04/29/17 at 14:11; Status DC Trazodone HCl (Desyrel) 50 mg QHSP PRN PO INSOMNIA Last administered on t 23:32; Start 04/27/17 at 23:00; Stop 05/27/17 at 22:59 Allergies Coded Allergies: No Known Allergies (Unverified , 04/27/17) GME ATTESTATION My preceptor for this patient encounter was physically present in the building during the encounter and was fully available. As needed, all aspects of the patient interview, examination, medical decision making process, and medical care plan development were reviewed and approved by the preceptor. Preceptor is aware and concurs with the plan as stated in the body of this note and will attest to such by his/her cosignature. IDALIA MILLER DO May 03, 2017 16:43
[2017-05-03 18:00] VITALS: BP 141/73
[2017-05-03] MEDS: hydrOXYzine 50 MG TAB PO PRN (21:13)
[2017-05-03] MEDS: traZODone 50 MG TAB PO PRN (22:21)
[2017-05-04 06:00] VITALS: BP 111/54
[2017-05-04] MEDS: ANBESOL GEL 10% MT SCH ×3 (09:00→20:44)
[2017-05-04] MEDS: CHLORHEXIDINE GLUCONATE 0.12 % 15ML UDC (PERIDEX ORAL RINSE) SSP SCH ×3 (09:00→20:43)
[2017-05-04] MEDS: DOCUSATE SODIUM 100 MG CAP PO SCH ×2 (10:05→20:57)
[2017-05-04] MEDS: buPROPion **XL** TABLET 150MG (WELLBUTRIN XL) PO SCH (10:05)
[2017-05-04] MEDS: FLUoxetine 10 MG CAP PO SCH (10:05)
[2017-05-04] MEDS: FERROUS SULFATE 325MG TAB PO SCH (10:05)
[2017-05-04] MEDS: CYANOCOBALAMIN 500 MCG TAB PO SCH (10:05)
[2017-05-04] MEDS: BUPRENORPHINE/NALOXONE 2-0.5MG SUBLINGUAL TABLET(SUBOXONE) SL SCH (10:06)
[2017-05-04] MEDS: NICOTINE 21MG/24HR 1 EA TRANSDERMAL TD SCH (10:08)
--- NOTE | 2017-05-04 11:08 | MHIPNPDOC ---
[facility] Progress Note Progress Note DATE OF SERVICE: 05/04/17 HISTORY: Patient is a 26-year-old female with 1 prior psychiatric admission post OD heroin, with multiple admissions for rehabilitation for substance abuse. Patient indicates she has been experiencing increased stress related to recent request to be "promoted" in substance abuse residential program and was denied, adds she was experiencing thoughts of wanting to kill herself with plan to hang self or drink bleach. Patient has history of one prior suicide attempt. Marketing Development Representative met with patient today to assess treatment progress on inpatient unit. Patient was observed to be sleeping in bed, readily sat up to meet with fiction and nonfiction writer prose and stated she is not sleeping well noting she might be "coming down with something," was vague in her description of symptoms but noted she was tired due to being awoken last night when new roommate was moved into room. Patient reported current anxiety level of 3/10, depression 4/10, denied suicidal and homicidal ideation, denied auditory or visual hallucinations, and denied urge to engage in self-injurious behavior. Patient indicates she feels recent Wellbutrin XL increase is "better," added she believes medications are more effective in controlling symptoms of anxiety and depression. Patient has been utilizing trazodone for sleep which she states is effective and has utilized hydroxyzine to address symptoms of nighttime anxiety, indicates medication is effective. Patient denies medication side effects. Patient appears less irritable at time of interaction, denies agitation, irritability, mood lability , and denies symptoms of craving or withdrawal. Patient reports some improvement to energy level overall, states appetite is stabilizing, and notes she may be experiencing some improvement to concentration and focus. Patient denies symptoms of physical pain and presents with no signs of acute distress at time of interaction. Addendum: When fiction and nonfiction writer prose spoke with [facility] nurse, Gloria, on 04/30/17, who indicated patient had been taking the following medications prescribed by [facility]: BuSpar 7.5 mg po BID until 04/21/17, discontinued due to ineffectiveness Prozac 30 mg po q am, unknown when increased from 20 mg, patient states approximately 1 month ago Wellbutrin XL 150 mg po q am started 04/21/17 VITALS: See below NEW TEST RESULTS: No new results PAST MEDICAL/SURGICAL HISTORY: Patient reports history of anemia and 2, denies history of other chronic medical problems, further denies history of seizure or head injury. Patient is currently experiencing aphthous ulcers which are being treated by PA Labs on admission indicated low HCT, anion gap, and AST. UDS negative HCG negative 04/28/17 EKG Normal sinus rhythm Normal EKG Comparison tracing not available UDS ordered, results pending CURRENT MEDICATIONS: See below MENTAL STATUS EXAMINATION: General appearance: Patient is a 26 -year old female, who is less irritable today, pleasant and cooperative, engageable, makes adequate eye contact, is less disheveled, dressed in hospital clothing, ambulates with steady gait, appears stated age. Speech: Of normal rate, rhythm, volume, spontaneous, coherent. Thought processes: Linear, logical, goal-directed. Thought content: Logical, rational, no tangentiality or paranoia noted, no perseveration. Abstract reasoning and computation: Appear intact. Description of associations: Intact. Description of abnormal or psychotic thoughts: Patient denies suicidal or homicidal ideation, denies auditory or visual hallucinations, does not appear to be responding to internal stimuli, does not endorse bizarre paranoid ideation , and denies preoccupation with violence or obsession. Judgment: Limited Insight: Limited. Orientation: A and O 3. Recent and remote memory: Appear intact. Attention span and concentration: Appear adequate. Fund of knowledge: Appears adequate. Mood: "A little better today and think." Patient appears less depressed and less anxious, no mood lability noted Affect: Remains blunted, brightens at times, congruent with mood. DIAGNOSES: Unspecified mood disorder, polysubstance use disorder. Rule out MDD, rule out bipolar, rule out substance-induced mood disorder, rule out ICD, rule out attention and concentration disorder, rule out kleptomania, rule out PTSD, rule out borderline personality disorder ASSESSMENT: Patient continues to adjust to unit, is more visible, engaging selectively with peers, is generally pleasant and cooperative, had to be reminded over the weekend of appropriate boundaries with another male patient. Patient indicates recent increase to Wellbutrin XL is effective and is in agreement with dose increase to Prozac in effort to reduce the number of antidepressants patient is taking. Patient is utilizing hydroxyzine PRN and trazodone with good effect, notes she experienced challenges with sleep last night which she attributes to new hospital roommate, denies need for dosing adjustments/change to sleep medication. Patient denies medication side effects. Patient has been educated on potential risks of psychotropic medications to unborn child should she become while taking medications and was strongly encouraged to utilize control while taking psychotropic medications, patient verbalizes understanding. Patient denies current suicidal or homicidal ideation and verbalizes awareness of how to access supportive services on the unit if needed. Will reduce Prozac as tolerated by patient and will continue to monitor patient's response to medications and will also monitor for medication side effects. Will evaluate patient's safety, resolution of suicidal ideation, and discharge readiness. Patient states when prepared for discharge she will return to [facility] residential program, is agreeable to resume outpatient psychotherapy and medication management through [facility] post discharge. MANAGEMENT PLAN: Continue Wellbutrin XL 300 mg po q am. Reduce Prozac to 20 mg po q am as tolerated by patient. Continue Suboxone 6 mg sL q day, hydroxyzine 50 mg po every 6 PRN for anxiety, and trazodone 50 mg po hs PRN insomnia. Repeat UDS ordered Maintain safety precautions Patient to attend groups and participate in unit programming to develop coping strategies Engage patient in discharge planning process and arrange meeting with support system to ensure safe discharge planning when appropriate Patient to follow up with PCM upon discharge TIME SPENT: 35 minutes Vital Signs Vital Signs Date Time Temp Pulse Resp B/P (MAP) Pulse Ox O2 Delivery O2 Flow Rate FiO2 05/04/17 06:00 98.6 71 18 111/54 (73) 04/30/17 09:59 Room Air Current Medications Current Medications Acetaminophen (Tylenol Tab) 650 mg Q6HP PRN PO HEADACHE or DISCOMFORT; Start at 23:00; Stop 05/27/17 at 22:59 Al Hydrox/Mg Hydrox/Simethicone (Mylanta) 30 ml Q4HP PRN PO HEARTBURN/ INDIGESTION; Start 04/27/17 at 23:00; Stop 05/27/17 at 22:59 Benzocaine (Anbesol Gel) 1 dose TID MT Last administered on 04/30/17 16:33; Start 04/28/17 at 09:00; Stop 05/28/17 at 08:59 Buprenorphine/ Naloxone (Suboxone 2/ 0.5mg) 1 tab DAILY SL Last administered on 04/28/17 08:05; Start 04/28/17 at 09:00; Stop 04/28/17 at 10:42; Status DC Buprenorphine/ Naloxone (Suboxone 2/ 0.5mg) 3 tab DAILY SL Last administered on 05/04/17 10:06; Start 04/29/17 at 09:00; Stop 05/06/17 at 08:59 Bupropion HCl (Wellbutrin Xl) 150 mg DAILY PO Last administered on 04/30/17 09 :47; Start 04/28/17 at 09:00; Stop 04/30/17 at 15:15; Status DC Bupropion HCl (Wellbutrin Xl) 300 mg DAILY PO Last administered on 05/04/17 10 :05; Start 05/01/17 at 09:00; Stop 05/31/17 at 08:59 Chlorhexidine Gluconate (Peridex Oral Rinse) 15 ml TID SSP Last administered on 05/02/17 21:40; Start 04/28/17 at 09:00; Stop 05/28/17 at 08:59 Cyanocobalamin (Vitamin B12) 500 mcg DAILY PO Last administered on 05/04/17 10 :05; Start 04/28/17 at 09:00; Stop 05/28/17 at 08:59 Docusate Sodium (Colace) 100 mg BID PO Last administered on 05/04/17 10:05; Start 04/28/17 at 09:00; Stop 05/28/17 at 08:59 Ferrous Sulfate (Ferrous Sulfate) 325 mg DAILY PO Last administered on 10:05; Start 04/28/17 at 09:00; Stop 05/28/17 at 08:59 Fluoxetine HCl (PROzac) 10 mg DAILY PO Last administered on 04/28/17 08:05; Start 04/28/17 at 09:00; Stop 04/28/17 at 22:17; Status DC Fluoxetine HCl (PROzac) 30 mg DAILY PO Last administered on 05/04/17 10:05; Start 04/29/17 at 09:00; Stop 05/29/17 at 08:59 Home Med (Med Rec Complete!) ASDIRECTED XX ; Start 04/27/17 at 21:00; Stop at 21:00; Status DC Hydroxyzine HCl (Atarax) 50 mg Q6HP PRN PO ANXIETY Last administered on 21:13; Start 04/28/17 at 22:15; Stop 05/28/17 at 22:14 Magnesium Hydroxide (Milk Of Magnesia) 30 ml DAILYPRN PRN PO CONSTIPATION; Start 04/27/17 at 23:00; Stop 05/27/17 at 22:59 Miscellaneous (Unresolved Patient Own Med Order) SEE LABEL COMMENTS UNRESOLVED XX ; Start 04/28/17 at 00:01; Stop 04/29/17 at 14:11; Status DC Nicotine (Nicoderm Cq 21mg) 1 patch DAILY TD Last administered on 05/04/17 10: 08; Start 04/28/17 at 09:00; Stop 05/28/17 at 08:59 Patient Own Medication (Patient'S Own Med) 1 ea DAILY PO ; Start 04/29/17 at 09: 00; Stop 04/29/17 at 14:11; Status DC Trazodone HCl (Desyrel) 50 mg QHSP PRN PO INSOMNIA Last administered on 22:21; Start 04/27/17 at 23:00; Stop 05/27/17 at 22:59 Allergies Coded Allergies: No Known Allergies (Unverified , 04/27/17) Michelle Kruse May 04, 2017 11:08
[2017-05-04 18:00] VITALS: BP 103/55
[2017-05-04] MEDS: hydrOXYzine 50 MG TAB PO PRN (20:58)
[2017-05-04] MEDS: traZODone 50 MG TAB PO PRN (22:38)
[2017-05-05 06:31] VITALS: BP 102/55
[2017-05-05] MEDS: CHLORHEXIDINE GLUCONATE 0.12 % 15ML UDC (PERIDEX ORAL RINSE) SSP SCH ×3 (09:00→21:00)
[2017-05-05] MEDS: ANBESOL GEL 10% MT SCH ×3 (09:00→21:00)
[2017-05-05] MEDS: buPROPion **XL** TABLET 150MG (WELLBUTRIN XL) PO SCH (10:30)
[2017-05-05] MEDS: FERROUS SULFATE 325MG TAB PO SCH (10:30)
[2017-05-05] MEDS: CYANOCOBALAMIN 500 MCG TAB PO SCH (10:31)
[2017-05-05] MEDS: DOCUSATE SODIUM 100 MG CAP PO SCH ×2 (10:31→21:28)
[2017-05-05] MEDS: NICOTINE 21MG/24HR 1 EA TRANSDERMAL TD SCH (10:31)
[2017-05-05] MEDS: BUPRENORPHINE/NALOXONE 2-0.5MG SUBLINGUAL TABLET(SUBOXONE) SL SCH (10:31)
[2017-05-05] MEDS: FLUoxetine 20 MG CAP PO SCH (10:31)
[2017-05-05 13:34] LABS: METHADONE URINE NEGATIVE (NEGATIVE)
[2017-05-05 18:46] VITALS: BP 142/77
--- NOTE | 2017-05-05 20:18 | MHIPNPDOC ---
[facility] Progress Note Progress Note DATE OF SERVICE: 05/05/17 HISTORY: Patient is a 26-year-old female with 1 prior psychiatric admission post OD heroin, with multiple admissions for rehabilitation for substance abuse. Patient indicates she has been experiencing increased stress related to recent request to be "promoted" in substance abuse residential program and was denied, adds she was experiencing thoughts of wanting to kill herself with plan to hang self or drink bleach. Patient has history of one prior suicide attempt. Strap Machine Operator met with patient today to assess treatment progress on inpatient unit. Patient was observed to be resting in bed between groups, readily sat up to meet with job specification writer for assessment purposes. Patient denies symptoms of anxiety, reports 3/10 depression, denies suicidal and homicidal ideation, denies auditory or visual hallucinations, denies urge to engage in self-injurious behavior. Patient indicates she is sleeping better, denies nightmare symptoms, notes trazodone remains effective. Patient states again today, "I'm not feeling good today, I don't know why, medium coming down with something." Patient unable to provide description of symptoms she is experiencing, informs job specification writer she does not feel it psychotropic medication related and denies medication side effects. Patient states she feels recent dose increase to Wellbutrin is helpful , had her first reduced dose of Prozac today and agrees to monitor for change to symptoms. Patient denies symptoms of irritability, agitation, or mood lability. Patient continues to take hydroxyzine PRN for intermittent symptoms of anxiety, has been taking approximately one time per day, also continues on Suboxone, denies symptoms of craving or withdrawal. Patient reports some improvement to energy level from yesterday, states appetite is stabilizing, and reports improvement to concentration and focus. Patient presents with no signs of acute distress at time of interaction. Addendum: Due to suspicions that patient has been possibly sharing her Suboxone with another patient on the unit and/or utilizing drugs which she may have obtained from another patient or visitor, repeat UDS was ordered, results negative. New UDS has been ordered for buprenorphine. VITALS: See below NEW TEST RESULTS: No new results PAST MEDICAL/SURGICAL HISTORY: Patient reports history of anemia and 2, denies history of other chronic medical problems, further denies history of seizure or head injury. Patient is currently experiencing aphthous ulcers which are being treated by PA Labs on admission indicated low HCT, anion gap, and AST. UDS on admission negative HCG negative 04/28/17 EKG Normal sinus rhythm Normal EKG Comparison tracing not available 05/05/17 repeat UDS negative UDS buprenorphine specific pending CURRENT MEDICATIONS: See below MENTAL STATUS EXAMINATION: General appearance: Patient is a 26 -year old female, who is less irritable today, cooperative, engageable, makes fair eye contact, is less disheveled, dressed in hospital clothing, ambulates with steady gait, appears stated age. Speech: Of normal rate, rhythm, volume, spontaneous, coherent. Thought processes: Linear, logical, goal-directed. Thought content: Logical, rational, no tangentiality or paranoia noted, no perseveration. Abstract reasoning and computation: Appear intact. Description of associations: Intact. Description of abnormal or psychotic thoughts: Patient denies suicidal or homicidal ideation, denies auditory or visual hallucinations, does not appear to be responding to internal stimuli, does not endorse bizarre paranoid ideation , and denies preoccupation with violence or obsession. Judgment: Limited Insight: Limited. Orientation: A and O 3. Recent and remote memory: Appear intact. Attention span and concentration: Appear adequate. Fund of knowledge: Appears adequate. Mood: "Okay, I think the medication is helping." No mood lability noted Affect: Remains blunted, brightens at times, congruent with mood. DIAGNOSES: Unspecified mood disorder, polysubstance use disorder. Rule out MDD, rule out bipolar, rule out substance-induced mood disorder, rule out ICD, rule out attention and concentration disorder, rule out kleptomania, rule out PTSD, rule out borderline personality disorder ASSESSMENT: Patient continues to adjust to unit, has been more isolative to room indicating she does not feel well, is unable to provide clear explanation of symptoms, continues to engage selectively with peers, and has been spending a fair amount of time with a certain male peer on the unit. Patient reiterates recent increase to Wellbutrin XL is effective, received first reduced dose of Prozac today, continues to utilize hydroxyzine PRN and trazodone with good effect, reports improved sleep last night and denies experiencing nightmares. Patient denies medication side effects. Patient has been educated on potential side effects of medications, the risks associated with substance abuse, and the risks associated with combining substance abuse with prescribed medications, patient verbalizes understanding. Patient has been educated on potential risks of psychotropic medications to unborn child should she become while taking medications and was strongly encouraged to utilize control while taking psychotropic medications, patient verbalizes understanding. Patient denies current suicidal or homicidal ideation and verbalizes awareness of how to access supportive services on the unit if needed. Will continue to monitor patient's response to medication changes and will also monitor for medication side effects. Will continue to evaluate patient's safety, resolution of suicidal ideation, and discharge readiness. Patient states when prepared for discharge she will return to [facility] residential program, is agreeable to resuming outpatient psychotherapy and medication management through [facility] post discharge. MANAGEMENT PLAN: Continue Wellbutrin XL 300 mg po q am. Continue Prozac 20 mg po q am and continue taper as tolerated by patient. Continue Suboxone 6 mg sL q day, hydroxyzine 50 mg po every 6 PRN for anxiety, and trazodone 50 mg po hs PRN insomnia. Repeat buprenorphine specific UDS ordered Maintain safety precautions Patient to attend groups and participate in unit programming to develop coping strategies Engage patient in discharge planning process and arrange meeting with support system to ensure safe discharge planning when appropriate Patient to follow up with PCM upon discharge TIME SPENT: 35 minutes Vital Signs Vital Signs Date Time Temp Pulse Resp B/P (MAP) Pulse Ox O2 Delivery O2 Flow Rate FiO2 05/05/17 18:46 98.8 73 16 142/77 (98) 05/05/17 06:31 Room Air Laboratory Data 24H Labs Laboratory Tests 2 05/05/17 12:30: Urine Amphetamines Screen NEGATIVE, Urine Benzodiazepines Screen NEGATIVE, Urine Opiates Screen NEGATIVE, Urine Methadone Screen NEGATIVE, Urine Barbiturates Screen NEGATIVE, Urine Phencyclidine Screen NEGATIVE, Urine Cocaine Metabolite Screen NEGATIVE, Urine Cannabinoids Screen NEGATIVE Current Medications Current Medications Acetaminophen (Tylenol Tab) 650 mg Q6HP PRN PO HEADACHE or DISCOMFORT Last administered on 05/04/17t 17:07; Start 04/27/17 at 23:00; Stop 05/27/17 at 22:59 Al Hydrox/Mg Hydrox/Simethicone (Mylanta) 30 ml Q4HP PRN PO HEARTBURN/ INDIGESTION; Start 04/27/17 at 23:00; Stop 05/27/17 at 22:59 Benzocaine (Anbesol Gel) 1 dose TID MT Last administered on 04/30/17 16:33; Start 04/28/17 at 09:00; Stop 05/28/17 at 08:59 Buprenorphine/ Naloxone (Suboxone 2/ 0.5mg) 1 tab DAILY SL Last administered on 04/28/17 08:05; Start 04/28/17 at 09:00; Stop 04/28/17 at 10:42; Status DC Buprenorphine/ Naloxone (Suboxone 2/ 0.5mg) 3 tab DAILY SL Last administered on 05/05/17 10:31; Start 04/29/17 at 09:00; Stop 05/12/17 at 08:59 Bupropion HCl (Wellbutrin Xl) 150 mg DAILY PO Last administered on 04/30/17 09 :47; Start 04/28/17 at 09:00; Stop 04/30/17 at 15:15; Status DC Bupropion HCl (Wellbutrin Xl) 300 mg DAILY PO Last administered on 05/05/17 10 :30; Start 05/01/17 at 09:00; Stop 05/31/17 at 08:59 Chlorhexidine Gluconate (Peridex Oral Rinse) 15 ml TID SSP Last administered on 05/02/17 21:40; Start 04/28/17 at 09:00; Stop 05/28/17 at 08:59 Cyanocobalamin (Vitamin B12) 500 mcg DAILY PO Last administered on 05/05/17 10 :31; Start 04/28/17 at 09:00; Stop 05/28/17 at 08:59 Docusate Sodium (Colace) 100 mg BID PO Last administered on 05/05/17 10:31; Start 04/28/17 at 09:00; Stop 05/28/17 at 08:59 Ferrous Sulfate (Ferrous Sulfate) 325 mg DAILY PO Last administered on 10:30; Start 04/28/17 at 09:00; Stop 05/28/17 at 08:59 Fluoxetine HCl (PROzac) 10 mg DAILY PO Last administered on 04/28/17 08:05; Start 04/28/17 at 09:00; Stop 04/28/17 at 22:17; Status DC Fluoxetine HCl (PROzac) 20 mg DAILY PO Last administered on 05/05/17 10:31; Start 05/05/17 at 09:00; Stop 06/04/17 at 08:59 Fluoxetine HCl (PROzac) 30 mg DAILY PO Last administered on 05/04/17 10:05; Start 04/29/17 at 09:00; Stop 05/04/17 at 17:02; Status DC Home Med (Med Rec Complete!) ASDIRECTED XX ; Start 04/27/17 at 21:00; Stop at 21:00; Status DC Hydroxyzine HCl (Atarax) 50 mg Q6HP PRN PO ANXIETY Last administered on 20:58; Start 04/28/17 at 22:15; Stop 05/28/17 at 22:14 Magnesium Hydroxide (Milk Of Magnesia) 30 ml DAILYPRN PRN PO CONSTIPATION; Start 04/27/17 at 23:00; Stop 05/27/17 at 22:59 Miscellaneous (Unresolved Patient Own Med Order) SEE LABEL COMMENTS UNRESOLVED XX ; Start 04/28/17 at 00:01; Stop 04/29/17 at 14:11; Status DC Nicotine (Nicoderm Cq 21mg) 1 patch DAILY TD Last administered on 05/05/17 10: 31; Start 04/28/17 at 09:00; Stop 05/28/17 at 08:59 Patient Own Medication (Patient'S Own Med) 1 ea DAILY PO ; Start 04/29/17 at 09: 00; Stop 04/29/17 at 14:11; Status DC Trazodone HCl (Desyrel) 50 mg QHSP PRN PO INSOMNIA Last administered on 22:38; Start 04/27/17 at 23:00; Stop 05/27/17 at 22:59 Allergies Coded Allergies: No Known Allergies (Unverified , 04/27/17) Michelle Kruse May 05, 2017 20:18
[2017-05-05] MEDS: hydrOXYzine 50 MG TAB PO PRN (21:28)
[2017-05-05] MEDS: traZODone 50 MG TAB PO PRN (22:39)
[2017-05-06 06:28] VITALS: BP 116/54
[2017-05-06] MEDS: ANBESOL GEL 10% MT SCH ×3 (09:00→21:00)
[2017-05-06] MEDS: CHLORHEXIDINE GLUCONATE 0.12 % 15ML UDC (PERIDEX ORAL RINSE) SSP SCH ×3 (09:00→21:00)
[2017-05-06] MEDS: buPROPion **XL** TABLET 150MG (WELLBUTRIN XL) PO SCH (10:26)
[2017-05-06] MEDS: FERROUS SULFATE 325MG TAB PO SCH (10:26)
[2017-05-06] MEDS: FLUoxetine 20 MG CAP PO SCH (10:26)
[2017-05-06] MEDS: DOCUSATE SODIUM 100 MG CAP PO SCH ×2 (10:26→21:19)
[2017-05-06] MEDS: CYANOCOBALAMIN 500 MCG TAB PO SCH (10:26)
[2017-05-06] MEDS: BUPRENORPHINE/NALOXONE 2-0.5MG SUBLINGUAL TABLET(SUBOXONE) SL SCH (10:27)
[2017-05-06] MEDS: NICOTINE 21MG/24HR 1 EA TRANSDERMAL TD SCH (10:27)
[2017-05-06] MEDS ORDERED: ULIPRISTAL ACETATE 30 MG TAB (ELLA) PO ONE (11:15)
[2017-05-06 18:00] VITALS: BP 118/71
[2017-05-06] MEDS: hydrOXYzine 50 MG TAB PO PRN (21:19)
--- NOTE | 2017-05-06 22:11 | MHIPNPDOC ---
[facility] Progress Note Progress Note DATE OF SERVICE: 05/06/17 HISTORY: Patient is a 26-year-old female with 1 prior psychiatric admission post OD heroin, with multiple admissions for rehabilitation for substance abuse. Patient indicates she has been experiencing increased stress related to recent request to be "promoted" in substance abuse residential program and was denied, adds she was experiencing thoughts of wanting to kill herself with plan to hang self or drink bleach. Patient has history of one prior suicide attempt. Biomedical Instrument Technician met with patient today to assess treatment progress on inpatient unit. Patient initiated conversation with comic book writer by stating she did not have sexual intercourse with other male patient, was defensive, reiterated that she thought taking the morning after pill was "just a good idea, what harm can do?" Risks associated with taking morning after pill, and not taking morning after pill if patient had in fact been sexually active, were reviewed with patient who verbalized understanding. Biomedical Instrument Technician again discussed potential risks of psychotropic medications to unborn child should patient become while taking psychotropic medications, patient again verbalized understanding. Patient verbalizes concern that recent events will be reported to [facility], indicates she fears she will be "kicked out" of program, expresses remorse for her behavior on unit. Patient reports current anxiety level of 6/10, depression 4/10, denies suicidal and homicidal ideation, denies auditory or visual hallucinations, and denies urge to engage in self-injurious behavior. Patient states sleep has improved and denies nightmares symptoms, notes trazodone remains effective. Patient feels recent dose increase to Wellbutrin is effective , denies noticing difference in antidepressant effectiveness post recent dose decrease. Patient denies medication side effects. Patient denies symptoms of irritability, agitation, or mood lability. Patient continues to utilize hydroxyzine PRN for intermittent symptoms of anxiety, has been taking medication approximately one time per day also continues on Suboxone maintenance and denies symptoms of craving or withdrawal. Patient indicates she is feeling "better" today, reports improvement to energy level, states appetite is stable, and describes concentration and focus as "fine." Patient denies symptoms of pain and presents with no signs of acute distress at time of interaction Addendum: Due to suspicions that patient has been possibly sharing her Suboxone with another patient on the unit and/or utilizing drugs which she may have obtained from another patient or visitor, repeat UDS was ordered, results negative. New UDS has been ordered for buprenorphine, results pending. VITALS: See below NEW TEST RESULTS: No new results PAST MEDICAL/SURGICAL HISTORY: Patient reports history of anemia and 2, denies history of other chronic medical problems, further denies history of seizure or head injury. Patient is currently experiencing aphthous ulcers which are being treated by PA Labs on admission indicated low HCT, anion gap, and AST. UDS on admission negative HCG negative 04/28/17 EKG Normal sinus rhythm Normal EKG Comparison tracing not available 05/05/17 repeat UDS negative UDS buprenorphine specific pending CURRENT MEDICATIONS: See below MENTAL STATUS EXAMINATION: General appearance: Patient is a 26 -year old female, who is less irritable today, cooperative, engageable, makes fair eye contact, is less disheveled, dressed in hospital clothing, ambulates with steady gait, appears stated age. Speech: Of normal rate, rhythm, volume, spontaneous, coherent. Thought processes: Linear, logical, goal-directed. Thought content: Logical, rational, no tangentiality or paranoia noted, no perseveration. Abstract reasoning and computation: Appear intact. Description of associations: Intact. Description of abnormal or psychotic thoughts: Patient denies suicidal or homicidal ideation, denies auditory or visual hallucinations, does not appear to be responding to internal stimuli, does not endorse bizarre paranoid ideation , and denies preoccupation with violence or obsession. Judgment: Poor Insight: Limited. Orientation: A and O 3. Recent and remote memory: Appear intact. Attention span and concentration: Appear adequate. Fund of knowledge: Appears adequate. Mood: "Okay, I think the medications are fine." Affect: Remains blunted, brightens at times, congruent with mood. DIAGNOSES: Unspecified mood disorder, polysubstance use disorder. Rule out MDD, rule out bipolar, rule out substance-induced mood disorder, rule out ICD, rule out attention and concentration disorder, rule out kleptomania, rule out PTSD, rule out borderline personality disorder ASSESSMENT: Patient continues to adjust to unit. Staff suspect patient engaged in sexual intercourse with another male patient on unit last night, patient indicates engaging in sexual intercourse, however, has elected to take the morning after pill as prescribed by PA. Patient continues to deny that she brought drugs onto the unit, used illicit drugs on the unit, or gave her Suboxone to another patient. Patient has been compliant with being on unit restriction, will evaluate discontinuation tomorrow. Patient reiterates recent increase to Wellbutrin XL is effective, denies noticing change in mood with recent reduction in Prozac dosing, continues to utilize hydroxyzine PRN and trazodone with good effect, reports improved sleep last night and denies experiencing nightmares. Patient denies medication side effects. Patient has been educated on potential side effects of medications, the risks associated with substance abuse, and the risks associated with combining substance abuse with prescribed medications, patient verbalizes understanding. Patient has also been educated on potential risks of psychotropic medications to unborn child should she become while taking medications and was strongly encouraged to utilize control while taking psychotropic medications, patient verbalizes understanding. Patient denies current suicidal or homicidal ideation and verbalizes awareness of how to access supportive services on the unit if needed. Will continue to monitor patient's response to medication changes and will also monitor for medication side effects. Will continue to evaluate patient 's safety, resolution of suicidal ideation, and discharge readiness. Patient reiterates today when prepared for discharge she will return to [facility] women[facility] residential program, is agreeable to resuming outpatient psychotherapy and medication management through [facility] post discharge. MANAGEMENT PLAN: Continue Wellbutrin XL 300 mg po q am, Suboxone 6 mg sL q day, hydroxyzine 50 mg po every 6 PRN for anxiety, and trazodone 50 mg po hs PRN insomnia. Continue Prozac 20 mg po q am with plan to continue taper as tolerated by patient. Repeat buprenorphine specific UDS ordered Patient has been placed on unit restriction Maintain safety precautions Patient to attend groups and participate in unit programming to develop coping strategies Engage patient in discharge planning process and arrange meeting with support system to ensure safe discharge planning when appropriate Patient to follow up with PCM upon discharge TIME SPENT: 35 minutes Vital Signs Vital Signs Date Time Temp Pulse Resp B/P (MAP) Pulse Ox O2 Delivery O2 Flow Rate FiO2 05/06/17 18:00 97.5 78 16 118/71 (87) 05/05/17 06:31 Room Air Laboratory Data 24H Labs Laboratory Tests 2 05/06/17 11:46: 05/06/17 12:35: Chlamydia trachomatis DNA (ONEL) NEGATIVE, Neisseria gonorrhoeae DNA (ONEL) NEGATIVE Current Medications Current Medications Acetaminophen (Tylenol Tab) 650 mg Q6HP PRN PO HEADACHE or DISCOMFORT Last administered on 05/04/17 17:07; Start 04/27/17 at 23:00; Stop 05/27/17 at 22:59 Al Hydrox/Mg Hydrox/Simethicone (Mylanta) 30 ml Q4HP PRN PO HEARTBURN/ INDIGESTION; Start 04/27/17 at 23:00; Stop 05/27/17 at 22:59 Benzocaine (Anbesol Gel) 1 dose TID MT Last administered on 04/30/17 16:33; Start 04/28/17 at 09:00; Stop 05/28/17 at 08:59 Buprenorphine/ Naloxone (Suboxone 2/ 0.5mg) 1 tab DAILY SL Last administered on 04/28/17 08:05; Start 04/28/17 at 09:00; Stop 04/28/17 at 10:42; Status DC Buprenorphine/ Naloxone (Suboxone 2/ 0.5mg) 3 tab DAILY SL Last administered on 05/06/17 10:27; Start 04/29/17 at 09:00; Stop 05/12/17 at 08:59 Bupropion HCl (Wellbutrin Xl) 150 mg DAILY PO Last administered on 04/30/17 09 :47; Start 04/28/17 at 09:00; Stop 04/30/17 at 15:15; Status DC Bupropion HCl (Wellbutrin Xl) 300 mg DAILY PO Last administered on 05/06/17 10 :26; Start 05/01/17 at 09:00; Stop 05/31/17 at 08:59 Chlorhexidine Gluconate (Peridex Oral Rinse) 15 ml TID SSP Last administered on 05/02/17 21:40; Start 04/28/17 at 09:00; Stop 05/28/17 at 08:59 Cyanocobalamin (Vitamin B12) 500 mcg DAILY PO Last administered on 05/06/17 10 :26; Start 04/28/17 at 09:00; Stop 05/28/17 at 08:59 Docusate Sodium (Colace) 100 mg BID PO Last administered on 05/06/17 21:19; Start 04/28/17 at 09:00; Stop 05/28/17 at 08:59 Ferrous Sulfate (Ferrous Sulfate) 325 mg DAILY PO Last administered on 10:26; Start 04/28/17 at 09:00; Stop 05/28/17 at 08:59 Fluoxetine HCl (PROzac) 10 mg DAILY PO Last administered on 04/28/17 08:05; Start 04/28/17 at 09:00; Stop 04/28/17 at 22:17; Status DC Fluoxetine HCl (PROzac) 20 mg DAILY PO Last administered on 05/06/17 10:26; Start 05/05/17 at 09:00; Stop 06/04/17 at 08:59 Fluoxetine HCl (PROzac) 30 mg DAILY PO Last administered on 05/04/17 10:05; Start 04/29/17 at 09:00; Stop 05/04/17 at 17:02; Status DC Home Med (Med Rec Complete!) ASDIRECTED XX ; Start 04/27/17 at 21:00; Stop at 21:00; Status DC Hydroxyzine HCl (Atarax) 50 mg Q6HP PRN PO ANXIETY Last administered on 21:19; Start 04/28/17 at 22:15; Stop 05/28/17 at 22:14 Magnesium Hydroxide (Milk Of Magnesia) 30 ml DAILYPRN PRN PO CONSTIPATION; Start 04/27/17 at 23:00; Stop 05/27/17 at 22:59 Miscellaneous (Unresolved Patient Own Med Order) SEE LABEL COMMENTS UNRESOLVED XX ; Start 04/28/17 at 00:01; Stop 04/29/17 at 14:11; Status DC Nicotine (Nicoderm Cq 21mg) 1 patch DAILY TD Last administered on 05/06/17 10: 27; Start 04/28/17 at 09:00; Stop 05/28/17 at 08:59 Patient Own Medication (Patient'S Own Med) 1 ea DAILY PO ; Start 04/29/17 at 09: 00; Stop 04/29/17 at 14:11; Status DC Trazodone HCl (Desyrel) 50 mg QHSP PRN PO INSOMNIA Last administered on 22:39; Start 04/27/17 at 23:00; Stop 05/27/17 at 22:59 Allergies Coded Allergies: No Known Allergies (Unverified , 04/27/17) Michelle Kruse May 06, 2017 22:11
[2017-05-06] MEDS: traZODone 50 MG TAB PO PRN (22:19)
[2017-05-07 06:37] VITALS: BP 112/57
[2017-05-07] MEDS: CHLORHEXIDINE GLUCONATE 0.12 % 15ML UDC (PERIDEX ORAL RINSE) SSP SCH ×3 (09:00→21:00)
[2017-05-07] MEDS: ANBESOL GEL 10% MT SCH ×3 (09:00→21:00)
[2017-05-07] MEDS: CYANOCOBALAMIN 500 MCG TAB PO SCH (09:04)
[2017-05-07] MEDS: BUPRENORPHINE/NALOXONE 2-0.5MG SUBLINGUAL TABLET(SUBOXONE) SL SCH (09:05)
[2017-05-07] MEDS: FERROUS SULFATE 325MG TAB PO SCH (09:05)
[2017-05-07] MEDS: DOCUSATE SODIUM 100 MG CAP PO SCH ×2 (09:05→21:40)
[2017-05-07] MEDS: buPROPion **XL** TABLET 150MG (WELLBUTRIN XL) PO SCH (09:05)
[2017-05-07] MEDS: FLUoxetine 20 MG CAP PO SCH (09:05)
[2017-05-07] MEDS: NICOTINE 21MG/24HR 1 EA TRANSDERMAL TD SCH (09:05)
--- NOTE | 2017-05-07 09:17 | MHIPNPDOC ---
[facility] Progress Note Progress Note DATE OF SERVICE: 05/07/17 HISTORY: Patient is a 26-year-old female with 1 prior psychiatric admission post OD heroin, with multiple admissions for rehabilitation for substance abuse. Patient indicates she has been experiencing increased stress related to recent request to be "promoted" in substance abuse residential program and was denied, adds she was experiencing thoughts of wanting to kill herself with plan to hang self or drink bleach. Patient has history of one prior suicide attempt. Software Quality Automation Engineer met with patient today to assess treatment progress on inpatient unit. Patient initiated conversation by expressing concerns related to what information would be conveyed to credo regarding recent behavior on unit. Patient was easily redirected and was able to engage with jingle writer for purposes of assessment. Patient reported current anxiety at 11/24, depression /, denied suicidal and homicidal ideation, denied auditory visual hallucination, denied urge to engage in self-injurious behavior. Patient indicates sleep remains improved with use of trazodone and patient has been utilizing hydroxyzine PRN to address intermittent symptoms of anxiety with good effect reported. Patient states she continues to feel that increased dose of Wellbutrin is effective, denies noticing change to symptoms with recent Prozac dose reduction. Patient denies medication side effects. Patient denies symptoms of irritability, agitation, or mood lability. Patient continues on Suboxone maintenance and denies symptoms of craving or withdrawal. Patient reports improvement to energy level, states appetite is stable, and notes concentration and focus are stable. Patient denies symptoms of pain and presents with no signs of acute distress at time of interaction. Patient is aware that should she continue to do well over the weekend discharge is being considered for Wednesday. Addendum: Patient makes request for lifting of unit restriction, jingle writer consulted with unit staff who indicated patient continues to exhibit poor boundaries with another male patient with a history of substance abuse. Unit restriction will be changed to allow patient to use the telephone and have visitors. Restriction change has been explained patient and patient was informed that remaining restriction will undergo going evaluation. Patient verbalized frustration but was able to maintain behavioral control and accept limits. Addendum: Due to suspicions that patient has been possibly sharing her Suboxone with another patient on the unit and/or utilizing drugs which she may have obtained from another patient or visitor, repeat UDS was ordered, results negative. New UDS has been ordered for buprenorphine, results remain pending. VITALS: See below NEW TEST RESULTS: No new results PAST MEDICAL/SURGICAL HISTORY: Patient reports history of anemia and 2, denies history of other chronic medical problems, further denies history of seizure or head injury. Patient is currently experiencing aphthous ulcers which are being treated by PA Labs on admission indicated low HCT, anion gap, and AST. UDS on admission negative HCG negative 04/28/17 EKG Normal sinus rhythm Normal EKG Comparison tracing not available 05/05/17 repeat UDS negative UDS buprenorphine specific pending CURRENT MEDICATIONS: See below MENTAL STATUS EXAMINATION: General appearance: Patient is a 26 -year old female, who is less irritable today, cooperative, engageable, makes improved eye contact, is less disheveled, dressed in hospital clothing, ambulates with steady gait, appears stated age. Speech: Of normal rate, rhythm, volume, spontaneous, coherent. Thought processes: Linear, logical, goal-directed. Thought content: Logical, rational, no tangentiality or paranoia noted, no perseveration. Abstract reasoning and computation: Appear intact. Description of associations: Intact. Description of abnormal or psychotic thoughts: Patient denies suicidal or homicidal ideation, denies auditory or visual hallucinations, does not appear to be responding to internal stimuli, does not endorse bizarre paranoid ideation , and denies preoccupation with violence or obsession. Judgment: Poor Insight: Limited. Orientation: A and O 3. Recent and remote memory: Appear intact. Attention span and concentration: Appear adequate. Fund of knowledge: Appears adequate. Mood: "Okay, better today." Patient reports improvement symptoms of anxiety and depression, no mood lability noted Affect: Remains blunted, brightens at times, congruent with mood. DIAGNOSES: Unspecified mood disorder, polysubstance use disorder. Rule out MDD, rule out bipolar, rule out substance-induced mood disorder, rule out ICD, rule out attention and concentration disorder, rule out kleptomania, rule out PTSD, rule out borderline personality disorder ASSESSMENT: Patient continues to adjust to unit and, per staff, continues to struggle with appropriate boundaries with male patients. Patient has been cooperative with staff, has been attending groups, and has not presented with any new behavior management challenges since episode involving sexual intercourse with another male patient on the unit, is also suspected of sharing Suboxone with other patient. Patient continues to deny that she brought drugs onto the unit, used illicit drugs on the unit, or gave her Suboxone to another patient. Patient has been compliant with being on unit restriction. Patient reiterates recent increase to Wellbutrin XL is effective, denies noticing change in mood with recent reduction in Prozac dosing, continues to utilize hydroxyzine PRN and trazodone with good effect, reports improved sleep last night and denies experiencing nightmares. Patient denies medication side effects. Patient has been educated on potential side effects of medications, the risks associated with substance abuse, and the risks associated with combining substance abuse with prescribed medications, patient has verbalized understanding. Patient has also been educated on potential risks of psychotropic medications to unborn child should she become while taking medications and was strongly encouraged to utilize control while taking psychotropic medications. Patient denies current suicidal or homicidal ideation and verbalizes awareness of how to access supportive services on the unit if needed. Will continue to monitor patient's response to medication changes and will also monitor for medication side effects. Will continue to evaluate patient's safety, resolution of suicidal ideation, and discharge readiness. Patient reiterates today when prepared for discharge she will return to [facility] women's residential program, is agreeable to resuming outpatient psychotherapy and medication management through [facility] post discharge. Patient is aware she is being evaluated for possible discharge Wednesday. MANAGEMENT PLAN: Continue Wellbutrin XL 300 mg po q am, Suboxone 6 mg sL q day, hydroxyzine 50 mg po every 6 PRN for anxiety, and trazodone 50 mg po hs PRN insomnia. Continue Prozac 20 mg po q am with plan to continue taper as tolerated by patient. Repeat buprenorphine specific UDS ordered Patient has been placed on unit restriction Maintain safety precautions Patient to attend groups and participate in unit programming to develop coping strategies Engage patient in discharge planning process and arrange meeting with support system to ensure safe discharge planning when appropriate Patient to follow up with PCM upon discharge TIME SPENT: 35 minutes Vital Signs Vital Signs Date Time Temp Pulse Resp B/P (MAP) Pulse Ox O2 Delivery O2 Flow Rate FiO2 05/07/17 06:37 98.6 68 16 112/57 (75) 05/05/17 06:31 Room Air Laboratory Data 24H Labs Laboratory Tests 2 05/06/17 11:46: 05/06/17 12:35: Chlamydia trachomatis DNA (ONEL) NEGATIVE, Neisseria gonorrhoeae DNA (ONEL) NEGATIVE Current Medications Current Medications Acetaminophen (Tylenol Tab) 650 mg Q6HP PRN PO HEADACHE or DISCOMFORT Last administered on 05/04/17 17:07; Start 04/27/17 at 23:00; Stop 05/27/17 at 22:59 Al Hydrox/Mg Hydrox/Simethicone (Mylanta) 30 ml Q4HP PRN PO HEARTBURN/ INDIGESTION; Start 04/27/17 at 23:00; Stop 05/27/17 at 22:59 Benzocaine (Anbesol Gel) 1 dose TID MT Last administered on 04/30/17 16:33; Start 04/28/17 at 09:00; Stop 05/28/17 at 08:59 Buprenorphine/ Naloxone (Suboxone 2/ 0.5mg) 1 tab DAILY SL Last administered on 04/28/17 08:05; Start 04/28/17 at 09:00; Stop 04/28/17 at 10:42; Status DC Buprenorphine/ Naloxone (Suboxone 2/ 0.5mg) 3 tab DAILY SL Last administered on 05/07/17 09:05; Start 04/29/17 at 09:00; Stop 05/12/17 at 08:59 Bupropion HCl (Wellbutrin Xl) 150 mg DAILY PO Last administered on 04/30/17 09 :47; Start 04/28/17 at 09:00; Stop 04/30/17 at 15:15; Status DC Bupropion HCl (Wellbutrin Xl) 300 mg DAILY PO Last administered on 05/07/17 09 :05; Start 05/01/17 at 09:00; Stop 05/31/17 at 08:59 Chlorhexidine Gluconate (Peridex Oral Rinse) 15 ml TID SSP Last administered on 05/02/17 21:40; Start 04/28/17 at 09:00; Stop 05/28/17 at 08:59 Cyanocobalamin (Vitamin B12) 500 mcg DAILY PO Last administered on 05/07/17 09 :04; Start 04/28/17 at 09:00; Stop 05/28/17 at 08:59 Docusate Sodium (Colace) 100 mg BID PO Last administered on 05/07/17 09:05; Start 04/28/17 at 09:00; Stop 05/28/17 at 08:59 Ferrous Sulfate (Ferrous Sulfate) 325 mg DAILY PO Last administered on 09:05; Start 04/28/17 at 09:00; Stop 05/28/17 at 08:59 Fluoxetine HCl (PROzac) 10 mg DAILY PO Last administered on 04/28/17 08:05; Start 04/28/17 at 09:00; Stop 04/28/17 at 22:17; Status DC Fluoxetine HCl (PROzac) 20 mg DAILY PO Last administered on 05/07/17 09:05; Start 05/05/17 at 09:00; Stop 06/04/17 at 08:59 Fluoxetine HCl (PROzac) 30 mg DAILY PO Last administered on 05/04/17 10:05; Start 04/29/17 at 09:00; Stop 05/04/17 at 17:02; Status DC Home Med (Med Rec Complete!) ASDIRECTED XX ; Start 04/27/17 at 21:00; Stop at 21:00; Status DC Hydroxyzine HCl (Atarax) 50 mg Q6HP PRN PO ANXIETY Last administered on 21:19; Start 04/28/17 at 22:15; Stop 05/28/17 at 22:14 Magnesium Hydroxide (Milk Of Magnesia) 30 ml DAILYPRN PRN PO CONSTIPATION; Start 04/27/17 at 23:00; Stop 05/27/17 at 22:59 Miscellaneous (Unresolved Patient Own Med Order) SEE LABEL COMMENTS UNRESOLVED XX ; Start 04/28/17 at 00:01; Stop 04/29/17 at 14:11; Status DC Nicotine (Nicoderm Cq 21mg) 1 patch DAILY TD Last administered on 05/07/17 09: 05; Start 04/28/17 at 09:00; Stop 05/28/17 at 08:59 Patient Own Medication (Patient'S Own Med) 1 ea DAILY PO ; Start 04/29/17 at 09: 00; Stop 04/29/17 at 14:11; Status DC Trazodone HCl (Desyrel) 50 mg QHSP PRN PO INSOMNIA Last administered on 22:19; Start 04/27/17 at 23:00; Stop 05/27/17 at 22:59 Allergies Coded Allergies: No Known Allergies (Unverified , 04/27/17) Michelle Kruse May 07, 2017 09:17
[2017-05-07 18:00] VITALS: BP 120/62
[2017-05-07] MEDS: hydrOXYzine 50 MG TAB PO PRN (21:40)
[2017-05-07] MEDS: traZODone 50 MG TAB PO PRN (22:04)
[2017-05-08 06:00] VITALS: BP 100/59
[2017-05-08] MEDS: CHLORHEXIDINE GLUCONATE 0.12 % 15ML UDC (PERIDEX ORAL RINSE) SSP SCH ×3 (09:00→20:39)
[2017-05-08] MEDS: ANBESOL GEL 10% MT SCH ×3 (09:00→20:38)
[2017-05-08] MEDS: buPROPion **XL** TABLET 150MG (WELLBUTRIN XL) PO SCH (09:25)
[2017-05-08] MEDS: NICOTINE 21MG/24HR 1 EA TRANSDERMAL TD SCH (09:25)
[2017-05-08] MEDS: BUPRENORPHINE/NALOXONE 2-0.5MG SUBLINGUAL TABLET(SUBOXONE) SL SCH (09:25)
[2017-05-08] MEDS: FLUoxetine 20 MG CAP PO SCH (09:26)
[2017-05-08] MEDS: DOCUSATE SODIUM 100 MG CAP PO SCH ×2 (09:26→21:39)
[2017-05-08] MEDS: CYANOCOBALAMIN 500 MCG TAB PO SCH (09:26)
[2017-05-08] MEDS: FERROUS SULFATE 325MG TAB PO SCH (09:26)
[2017-05-08 18:00] VITALS: BP 109/59
[2017-05-08] MEDS: hydrOXYzine 50 MG TAB PO PRN (21:39)
[2017-05-08] MEDS: traZODone 50 MG TAB PO PRN (22:19)
[2017-05-09 06:00] VITALS: BP 104/57
[2017-05-09] MEDS: ANBESOL GEL 10% MT SCH ×3 (09:00→21:00)
[2017-05-09] MEDS: CHLORHEXIDINE GLUCONATE 0.12 % 15ML UDC (PERIDEX ORAL RINSE) SSP SCH ×3 (09:00→21:00)
[2017-05-09] MEDS: DOCUSATE SODIUM 100 MG CAP PO SCH ×2 (09:53→21:37)
[2017-05-09] MEDS: BUPRENORPHINE/NALOXONE 2-0.5MG SUBLINGUAL TABLET(SUBOXONE) SL SCH (09:53)
[2017-05-09] MEDS: FERROUS SULFATE 325MG TAB PO SCH (09:53)
[2017-05-09] MEDS: NICOTINE 21MG/24HR 1 EA TRANSDERMAL TD SCH (09:53)
[2017-05-09] MEDS: FLUoxetine 20 MG CAP PO SCH (09:53)
[2017-05-09] MEDS: buPROPion **XL** TABLET 150MG (WELLBUTRIN XL) PO SCH (09:53)
[2017-05-09] MEDS: CYANOCOBALAMIN 500 MCG TAB PO SCH (09:53)
[2017-05-09 18:00] VITALS: BP 132/60
[2017-05-09] MEDS: hydrOXYzine 50 MG TAB PO PRN (21:37)
[2017-05-09] MEDS: traZODone 50 MG TAB PO PRN (22:55)
[2017-05-10 06:30] VITALS: BP 112/50
[2017-05-10 06:31] VITALS: BP 112/50
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
[2017-05-10] MEDS: ANBESOL GEL 10% MT SCH (08:51)
[2017-05-10] MEDS: BUPRENORPHINE/NALOXONE 2-0.5MG SUBLINGUAL TABLET(SUBOXONE) SL SCH (08:54)
[2017-05-10] MEDS: NICOTINE 21MG/24HR 1 EA TRANSDERMAL TD SCH (08:54)
[2017-05-10] MEDS: DOCUSATE SODIUM 100 MG CAP PO SCH (08:54)
[2017-05-10] MEDS: buPROPion **XL** TABLET 150MG (WELLBUTRIN XL) PO SCH (08:54)
[2017-05-10] MEDS: CYANOCOBALAMIN 500 MCG TAB PO SCH (08:54)
[2017-05-10] MEDS: CHLORHEXIDINE GLUCONATE 0.12 % 15ML UDC (PERIDEX ORAL RINSE) SSP SCH (08:54)
[2017-05-10] MEDS: FERROUS SULFATE 325MG TAB PO SCH (08:54)
[2017-05-10] MEDS: FLUoxetine 20 MG CAP PO SCH (08:54)
[2017-05-10] MEDS ORDERED: TRAZO50TA PO (11:22)
[2017-05-10] MEDS ORDERED: FLUO20CA9 PO (11:22)
[2017-05-10] MEDS ORDERED: HYDRO50TAB PO (11:22)
[2017-05-10] MEDS ORDERED: BUPR150T3 PO (11:22)
[2017-05-10] MEDS ORDERED: NICO21PAT TD (12:13)
[2017-05-10] MEDS ORDERED: FERR325T PO (12:13)
[2017-05-10] MEDS ORDERED: VITA500T53 PO (12:21)
[2017-05-13 10:17] LABS: URINE NORBUPRENORPHINE Positive (.); URINE NORBUPRENORPHINE CONFIRM 16 ng/mL (Cutoff=10)
== END 2017-05-10 12:40 | disposition home or self-care (01) | DRG 753 ==
LOC: M ED 18:31 → M ED INP 20:08 → M PSY 21:29
PROVIDERS: ADMIT Psychiatry & Neurology Psychiatry; ATTEND Psychiatry & Neurology Psychiatry
DX: F39 Unspecified mood [affective] disorder (principal); F60.3 Borderline personality disorder; F19.94 Other psychoactive substance use, unspecified with psychoactive substance-induced mood disorder; F43.10 Post-traumatic stress disorder, unspecified; F63.2 Kleptomania; Z79.899 Other long term (current) drug therapy; D64.9 Anemia, unspecified; K12.0 Recurrent oral aphthae; R45.851 Suicidal ideations